=== PATIENT | female | born 1995 ===

== ENCOUNTER 2017-07-22 11:57 | Inpatient (IN) | payer OTHER ==
[2017-07-22 12:13] VITALS: BMI 21.4
--- NOTE | 2017-07-22 12:25 | ED PDOC ---
Arrival/HPI - General Time Seen by Provider: 07/22/17 12:19 Historian: Patient - History of Present Illness Narrative History of Present Illness (Text): 07/22/17 12:22 A 21 year old female, with no significant past medical history, presents to the emergency department complaining of chest pain since this morning. Patient reports having given () 2 weeks ago. Describes chest pain as heaviness and worsens with breathing. Patient notes also experiencing shortness of breath. Patient denies any fever, cough, rhinorrhea, leg cramping, bilateral calf pain, or any other complaints at this time. Also denies any recent illness or any asthma issues. Patient mentions also currently breast-feeding. No PMD Time/Duration: Other (this morning upon waking up) Symptom Onset: Sudden Symptom Course: Unchanged Past Medical History - Provider Review Nursing Documentation Reviewed: Yes - Psychiatric Hx Substance Use: No Family/Social History - Physician Review Nursing Documentation Reviewed: Yes Family/Social History: No Known Family HX Smoking Status: no Hx Alcohol Use: No Hx Substance Use: No Allergies/Home Meds Allergies/Adverse Reactions: Allergies Penicillins Allergy (Verified 07/22/17 18:33) ANAPHYLAXIS Home Medications: Home Meds Medication Instructions Recorded Confirmed No Known Home Med 07/22/17 07/22/17 Review of Systems - Physician Review All systems were reviewed & negative as marked: Yes - Review of Systems Constitutional: absent: Fevers ENT: absent: Rhinorrhea Respiratory: SOB. absent: Cough Cardiovascular: Chest Pain (described as heaviness, worsens with breathing). absent: Calf Pain (no bilateral calf pain) Musculoskeletal: absent: Other (no leg cramping) Physical Exam Vital Signs Reviewed: Yes Vital Signs Temp Pulse Resp BP Pulse Ox 07/22/17 17:11 58 L 18 112/74 100 07/22/17 16:34 65 18 126/84 100 07/22/17 16:16 62 18 110/73 100 07/22/17 15:56 58 L 18 127/75 100 07/22/17 14:00 60 17 100/76 100 07/22/17 12:11 98.2 F 18 132/93 H 100 Temperature: Afebrile Blood Pressure: Normal Pulse: Regular Respiratory Rate: Normal Appearance: Positive for: Well-Appearing Pain Distress: None Mental Status: Positive for: Alert and Oriented X 3 - Systems Exam Respiratory/Chest: Present: Clear to Auscultation, Good Air Exchange, Other (non -reproducible chest pain ). No: Respiratory Distress, Accessory Muscle Use Cardiovascular: Present: Regular Rate and Rhythm, Normal S1, S2. No: Murmurs Abdomen: No: Tenderness, Distention, Peritoneal Signs Upper Extremity: Present: Normal Inspection. No: Cyanosis, Edema Lower Extremity: Present: Normal Inspection, NORMAL PULSES (+2 good distal pulses). No: Edema, CALF TENDERNESS, Cyanosis Neurological: Present: GCS=15, CN II-XII Intact, Speech Normal Skin: Present: Warm, Dry, Normal Color. No: Rashes Psychiatric: Present: Alert, Oriented x 3, Normal Insight, Normal Concentration Medical Decision Making ED Course and Treatment: 07/22/17 12:26 Impression: 21 year old female with chest pain and shortness of breath. Physical exam shows non-reproducible chest pain, clear lungs. Differential Diagnosis included but are not limited to: Atypical chest pain, possible musculoskeletal pain vs. possible PE due to recent . Plan: -- EKG -- Chest X-ray -- Labs -- Tylenol -- Urinalysis -- Reassess and disposition Prior Visits: Notes and results from previous visits were reviewed. Patient was last seen in the emergency department on 06/24/2015 for right side flank pain. Patient was d/ c home. Progress Notes: 07/22/17 13:58 EKG: Ordered, reviewed, and independently interpreted the EKG. Rate : 60 BPM Rhythm : NSR Interpretation : No ST-segment elevations or depressions, no T-wave inversions, normal intervals. Comparison : No previous EKG for comparison. Patient currently appears relatively asymptomatic. Troponin level is 9 at this time. Will repeat Troponin and EKG testing. Possible lab result error. 07/22/2017 14:00 Chest X-ray IMPRESSION: No active pulmonary disease. Dictator: Amber Mckeon MD 07/22/2017 14:[address] Morales, will be seeing patient at bedside. 07/22/17 15:[address] has been ordered. 07/22/17 16:05 Spoke with diesel engine specialist Dr. Cifuentes for evaluation for ICU. 07/22/17 16:[address] Cifuentes, whom requests cardiac echo stat. - Lab Interpretations Lab Results: 07/22/17 12:00 07/22/17 12:00 Lab Results 07/22/17 15:00: Urine Opiates Screen Negative, Urine Methadone Screen Negative, Ur Barbiturates Screen Negative, Ur Phencyclidine Scrn Negative, Ur Amphetamines Screen Negative, U Benzodiazepines Scrn Negative, U Oth Cocaine Metabols Negative, U Cannabinoids Screen Negative 07/22/17 14:00: Troponin I 12.70 H* D 07/22/17 13:00: Urine Color Yellow, Urine Appearance Clear, Urine pH 6.0, Ur Specific [place] 1.020, Urine Protein 30 H, Urine Glucose (UA) Negative, Urine Ketones Trace H, Urine Blood Large H, Urine Nitrate Negative, Urine Bilirubin Negative, Urine Urobilinogen 1.0 H, Ur Leukocyte Esterase Moderate H, Urine RBC Tntc, Urine WBC 5 - 10, Ur Epithelial Cells 3 - 4, Urine Bacteria Few 07/22/17 12:00: Sodium 139, Potassium 4.0, Chloride 103, Carbon Dioxide 26, Anion Gap 14, BUN 15, Creatinine 0.7, Est GFR ( Amer) > 60, Est GFR (Non- Af Amer) > 60, Random Glucose 97, Calcium 9.6, Magnesium 2.1, Total Bilirubin 0.4, AST 91 H, ALT 37, Alkaline Phosphatase 98, Lactate Dehydrogenase 589, Total Creatine Kinase 413 H, CK-MB (CK-2) 18.6 H, CK-MB (CK-2) % 4.5 H, Troponin I 9.57 H*, Total Protein 7.8, Albumin 4.3, Globulin 3.5, Albumin/ Globulin Ratio 1.2 07/22/17 12:00: PT 11.5, INR 1.00, APTT 30.8, D-Dimer, Quantitative 291 H 07/22/17 12:00: WBC 5.4 D, RBC 3.68, Hgb 11.6 L, Hct 34.1 L, MCV 92.7, MCH 31.5 , MCHC 34.0, RDW 12.0, Plt Count 335, MPV 9.3, Gran % 49.1 L, Lymph % (Auto) 40.5 H, [place] % (Auto) 5.4, Eos % (Auto) 4.1, Baso % (Auto) 0.9, Gran # 2.63, Lymph # (Auto) 2.2, [place] # (Auto) 0.3, Eos # (Auto) 0.2, Baso # (Auto) 0.05 I have reviewed the lab results: Yes - RAD Interpretation Radiology Orders: 07/22/17 12:26 CHEST PORTABLE [RAD] Stat 07/22/17 14:55 ANGIO CHEST PE PROTOCOL [CT] Stat - Medication Orders Current Medication Orders: Aspirin (Ecotrin) 81 mg PO DAILY KIRK Clopidogrel Bisulfate (Plavix) 75 mg PO DAILY KIRK Heparin Sodium/Sodium Chloride (Heparin 45713 Units/250ml 1/2 Normal Saline) 25 ,000 units in 250 mls @ 5.77 mls/hr IV .Q24H KIRK; 12 UNITS/KG/HR PRN Reason: Protocol Last Admin: 07/22/17 18:23 Dose: 12 units/kg/hr, 5.77 mls/hr eMAR Start Stop Document 07/22/17 18:23 AE (Rec: 07/22/17 18:24 AE [facility]) Intravenous Solution Start Date 07/22/17 Start Time 18:24 End Date 07/23/17 End time 18:24 Total Infusion Time 1440 Titration Intervention Document 07/22/17 18:23 AE (Rec: 07/22/17 18:24 AE [facility]) Titration Intake Waste Amount 0 Container Volume 250 Titration Dosing Titration Dose 12 IV Rate 5.77 Intake/Decrease Started Metoprolol Tartrate (Lopressor) 12.5 mg PO BID KIRK Discontinued Medications Acetaminophen (Tylenol 325mg Tab) 650 mg PO STAT STA Stop: 07/22/17 12:30 Last Admin: 07/22/17 13:15 Dose: 650 mg Aspirin (Aspirin) 325 mg PO STAT STA Stop: 07/22/17 15:00 Last Admin: 07/22/17 15:16 Dose: 325 mg Clopidogrel Bisulfate (Plavix) 300 mg PO STAT STA Stop: 07/22/17 15:01 Last Admin: 07/22/17 15:16 Dose: 300 mg Heparin Sodium (Porcine) (Heparin) 3,400 units 70 units/kg (3400 units) IV ONCE ONE PRN Reason: Protocol Stop: 07/22/17 18:05 Last Admin: 07/22/17 18:22 Dose: 3,400 units eMAR Start Stop Document 07/22/17 18:22 AE (Rec: 07/22/17 18:23 AE [facility]) Intravenous Solution Start Date 07/22/17 Start Time 18:23 - Scribe Statement The provider has reviewed the documentation as recorded by the Andrade Sanderson Provider Scribe Attestation: All medical record entries made by the Scribe were at my direction and personally dictated by me. I have reviewed the chart and agree that the record accurately reflects my personal performance of the history, physical exam, medical decision making, and the department course for this patient. I have also personally directed, reviewed, and agree with the discharge instructions and disposition. Disposition/Present on Arrival - Present on Arrival Any Indicators Present on Arrival: No History of DVT/PE: No History of Uncontrolled Diabetes: No Urinary Catheter: No History Surgical Site Infection Following: None - Disposition Have Diagnosis and Disposition been Completed?: Yes Diagnosis: Chest pain Disposition: HOSPITALIZED Disposition Time: 19:36 Patient Plan: Admission, Telemetry Patient Problems: Current Active Problems Problem Status Onset Chest pain Acute Condition: FAIR
[2017-07-22 12:37] LABS: BASO # 0.05 K/mm3 (0.0-2.0); BASO % 0.9 % (0.0-3.0); EOS # 0.2 (0.0-0.7); EOS % 4.1 % (1.5-5.0); GRAN # 2.63 (1.4-6.5); GRAN % 49.1 % (50.0-68.0); HEMOGLOBIN 11.6 g/dL (12.0-16.0); LYMPH # 2.2 (1.2-3.4); LYMPH % 40.5 % (22.0-35.0); MEAN CELL VOLUME 92.7 fl (80.0-105.0); MEAN CORPUSCULAR HEMOGLOBIN 31.5 pg (25.0-35.0); MEAN PLATELET VOLUME 9.3 fl (7.0-11.0); MONO # 0.3 (0.1-0.6); MONO % 5.4 % (1.0-6.0); RBC 3.68 10^6/uL (3.5-6.1); WHITE BLOOD COUNT 5.4 10^3/ul (4.5-11.0)
[2017-07-22 12:52] LABS: ALB/GLOB RATIO 1.2 (1.1-1.8); ALBUMIN 4.3 g/dL (3.0-4.8); ALT/SGPT 37 U/L (7-56); AST/SGOT 91 U/L (14-36); BLOOD UREA NITROGEN 15 mg/dL (7-21); CALCIUM 9.6 mg/dL (8.4-10.5); GFR AFRICAN-AMERICAN > 60; GFR NON-AFRICAN AMERICAN > 60
[2017-07-22 12:56] LABS: PARTIAL THROMBOPLASTIN TIME 30.8 Seconds (25.1-36.5); PROTHROMBIN TIME 11.5 SECONDS (9.4-12.5)
[2017-07-22 13:14] LABS: URINE BILIRUBIN NEGATIVE (NEGATIVE); URINE BLOOD LARGE (NEGATIVE); URINE GLUCOSE (UA) NEGATIVE (NEGATIVE); URINE LEUKOCYTE ESTERASE MODERATE Leu/uL (NEGATIVE); URINE PROTEIN 30 mg/dL (<30 mg/dL)
[2017-07-22 13:17] LABS: URINE APPEARANCE CLEAR (CLEAR); URINE COLOR YELLOW (YELLOW)
[2017-07-22 13:48] LABS: CK MB% 4.5 % (2.5-3.0); CK-MB 18.6 ng/mL (0.0-3.6); TROPONIN I 9.57 ng/mL
[2017-07-22 13:54] LABS: URINE RBC TNTC /hpf (0-2)
[2017-07-22 13:55] LABS: URINE BACTERIA FEW (NEG)
--- NOTE | 2017-07-22 14:02 | RAD ---
HISTORY: chest pain COMPARISON: No prior. FINDINGS: LUNGS: The lungs are well inflated and clear. PLEURA: No significant pleural effusion identified, no pneumothorax apparent. CARDIOVASCULAR: Normal. OSSEOUS STRUCTURES: No significant abnormalities. VISUALIZED UPPER ABDOMEN: Normal. OTHER FINDINGS: None. IMPRESSION: No active pulmonary disease.
--- NOTE | 2017-07-22 14:27 | CARD ---
APPROVED REPORT EKG Measurement Heart [id number] <Conclusion> Normal sinus rhythm Normal ECG
[2017-07-22] MEDS ORDERED: Iodixanol 320 MG/ML 100 ML BOTTLE IV ONE (15:08)
--- NOTE | 2017-07-22 16:02 | CT ---
PROCEDURE: CT Chest with contrast (Pulmonary Angiogram) HISTORY: Chest pain COMPARISON: Plain radiograph from 07/22/2017. TECHNIQUE: Axial computed tomography images were obtained of the chest in the pulmonary arterial phase of enhancement. Coronal and sagittal reformatted images were created and reviewed. Intravenous contrast dose: 100 mL Visipaque 320 Radiation dose: Total exam DLP = 174.77 mGy-cm. This CT exam was performed using one or more of the following dose reduction techniques: Automated exposure control, adjustment of the mA and/or kV according to patient size, and/or use of iterative reconstruction technique. FINDINGS: PULMONARY ARTERIES: There are no filling defects in the pulmonary arteries to suggest acute pulmonary embolus. AORTA: No acute findings. No thoracic aortic aneurysm. LUNGS: The lungs are well inflated and clear. No nodule, mass or pulmonary consolidation. PLEURAL SPACES: No effusion or pneuomothorax. HEART: The heart is normal in size. No significant pericardial effusion. LYMPH NODES: No pathologic hilar or mediastinal lymphadenopathy. BONES, CHEST WALL: Within normal limits for the patient's age. No fracture or destructive lesion OTHER FINDINGS: Unremarkable. IMPRESSION: No CTA evidence for acute pulmonary embolism. Clear lungs.
[2017-07-22 16:19] LABS: BARBITURATES, UR NEGATIVE (NEGATIVE); BENZODIAZEPINES, UR NEGATIVE (NEGATIVE); OPIATES, UR NEGATIVE (NEGATIVE); PHENCYCLIDINE, UR NEGATIVE (NEGATIVE)
--- NOTE | 2017-07-22 17:10 | CP.PCM.CON ---
History of Present Illness - History of Present Illness History of Present Illness: MICU Consult Note HPI Patient is 21yo female without sig PMHx, s/p 2 weeks ago, presents with chest pain. Pt reports chest pain began at 8am, left sided, pressure like, moderate intensity, non radiating without alleviating or aggravating factors, last until 12pm, at which time it subsided. Pt reports the chest pain was associated with SOB. Denies fever, chills, cough, recent illness, leg edema, diaphoresis, GARCIA, dizziness. No other constitutional symptoms. Pt denies smoking , etoh, illicit drug use. In the ER patient noted to have elevated troponin, cardiology consulted. Pt reports an eventful . PMHx NONE PSHx NONE Meds as per EMR Allergies PCN FHx NC ROS as above Review of Systems - Review of Systems Review of Systems: as per HPI Past Patient History - Past Social History Smoking Status: no - PSYCHIATRIC Hx Substance Use: No - SURGICAL HISTORY Hx Surgeries: No Meds Allergies/Adverse Reactions: Allergies Allergy/AdvReac Type Severity Reaction Status Date / Time Penicillins Allergy ANAPHYLAXIS Verified 07/22/17 12:49 Physical Exam - Constitutional Appears: Non-toxic, No Acute Distress - Head Exam Head Exam: NORMAL INSPECTION - Eye Exam Eye Exam: Normal appearance - ENT Exam ENT Exam: Mucous Membranes Moist - Respiratory Exam Respiratory Exam: Clear to Auscultation Bilateral, NORMAL BREATHING PATTERN - Cardiovascular Exam Cardiovascular Exam: REGULAR RHYTHM, +S1, +S2 - GI/Abdominal Exam GI & Abdominal Exam: Normal Bowel Sounds, Soft - Extremities Exam Extremities exam: Positive for: normal inspection - Back Exam Back exam: NORMAL INSPECTION - Neurological Exam Neurological exam: Alert, Oriented x3 - Psychiatric Exam Psychiatric exam: Normal Affect - Skin Skin Exam: Normal Color, Warm Results - Vital Signs Recent Vital Signs: Last Vital Signs Temp 98.2 F 07/22/17 12:11 Pulse 65 07/22/17 16:34 Resp 18 07/22/17 16:34 BP 126/84 07/22/17 16:34 Pulse Ox 100 07/22/17 16:34 - Labs Result Diagrams: 07/22/17 12:00 07/22/17 12:00 Labs: Laboratory Results - last 24 hr 07/22/17 07/22/17 07/22/17 12:00 12:00 12:00 WBC 5.4 D RBC 3.68 Hgb 11.6 L Hct 34.1 L MCV 92.7 MCH 31.5 MCHC 34.0 RDW 12.0 Plt Count 335 MPV 9.3 Gran % 49.1 L Lymph % (Auto) 40.5 H [place] % (Auto) 5.4 Eos % (Auto) 4.1 Baso % (Auto) 0.9 Gran # 2.63 Lymph # (Auto) 2.2 [place] # (Auto) 0.3 Eos # (Auto) 0.2 Baso # (Auto) 0.05 PT 11.5 INR 1.00 APTT 30.8 D-Dimer, Quantitative 291 H Sodium 139 Potassium 4.0 Chloride 103 Carbon Dioxide 26 Anion Gap 14 BUN 15 Creatinine 0.7 Est GFR ( Amer) > 60 Est GFR (Non-Af Amer) > 60 Random Glucose 97 Calcium 9.6 Magnesium 2.1 Total Bilirubin 0.4 AST 91 H ALT 37 Alkaline Phosphatase 98 Lactate Dehydrogenase 589 Total Creatine Kinase 413 H CK-MB (CK-2) 18.6 H CK-MB (CK-2) % 4.5 H Troponin I 9.57 H* Total Protein 7.8 Albumin 4.3 Globulin 3.5 Albumin/Globulin Ratio 1.2 Urine Color Urine Appearance Urine pH Ur Specific [place] Urine Protein Urine Glucose (UA) Urine Ketones Urine Blood Urine Nitrate Urine Bilirubin Urine Urobilinogen Ur Leukocyte Esterase Urine RBC Urine WBC Ur Epithelial Cells Urine Bacteria Urine Opiates Screen Urine Methadone Screen Ur Barbiturates Screen Ur Phencyclidine Scrn Ur Amphetamines Screen U Benzodiazepines Scrn U Oth Cocaine Metabols U Cannabinoids Screen 07/22/17 07/22/17 07/22/17 13:00 14:00 15:00 WBC RBC Hgb Hct MCV MCH MCHC RDW Plt Count MPV Gran % Lymph % (Auto) [place] % (Auto) Eos % (Auto) Baso % (Auto) Gran # Lymph # (Auto) [place] # (Auto) Eos # (Auto) Baso # (Auto) PT INR APTT D-Dimer, Quantitative Sodium Potassium Chloride Carbon Dioxide Anion Gap BUN Creatinine Est GFR ( Amer) Est GFR (Non-Af Amer) Random Glucose Calcium Magnesium Total Bilirubin AST ALT Alkaline Phosphatase Lactate Dehydrogenase Total Creatine Kinase CK-MB (CK-2) CK-MB (CK-2) % Troponin I 12.70 H* D Total Protein Albumin Globulin Albumin/Globulin Ratio Urine Color Yellow Urine Appearance Clear Urine pH 6.0 Ur Specific [place] 1.020 Urine Protein 30 H Urine Glucose (UA) Negative Urine Ketones Trace H Urine Blood Large H Urine Nitrate Negative Urine Bilirubin Negative Urine Urobilinogen 1.0 H Ur Leukocyte Esterase Moderate H Urine RBC Tntc Urine WBC 5 - 10 Ur Epithelial Cells 3 - 4 Urine Bacteria Few Urine Opiates Screen Negative Urine Methadone Screen Negative Ur Barbiturates Screen Negative Ur Phencyclidine Scrn Negative Ur Amphetamines Screen Negative U Benzodiazepines Scrn Negative U Oth Cocaine Metabols Negative U Cannabinoids Screen Negative - EKG Data EKG comments: NSR, NML axis, NO ST changes - Imaging and Cardiology CT scan - chest Status: Image reviewed by me, Report reviewed by me Assessment & Plan - Assessment and Plan (Free Text) Assessment: 21yo female a/w chest pain and elevated troponin. Elevated Troponin r/o NSTEMI Chest Pain SOB - currently afebrile, HD stable, comfortable in NAD, sat 100%, chest pain free - CXR normal, CT PE negative, no pleural effusions - EKG NSR, no ST changes - Bedside ECHO subcostol view with NO pericardial effusion, minimally depressed EF, officel ECHO pending - Cardiology consulted - ASA, Plavix, Lipitor - Heparin - HgBA1C, Lipid Panel - ECHO - Caridology consult - repeat Cardiac enzymes - monitor HH - DVT ppx, Heparin drip - Admit to CCU
[2017-07-22] MEDS ORDERED: Heparin25000 units/250ml 1/2NS 25,000 UNITS/250 ML BAG IV SCH (17:15)
[2017-07-22] MEDS ORDERED: Pneumococcal 23-Valent Vaccine IM ONE (19:45)
[2017-07-22 20:59] LABS: CK MB% 4.1 % (2.5-3.0); CK-MB 18.3 ng/mL (0.0-3.6)
[2017-07-22 21:14] LABS: TROPONIN I 13.4 ng/mL
[2017-07-22] MEDS ORDERED: Morphine 4 mg/ml ISec IVP STA (22:09)
[2017-07-22] MEDS ORDERED: Morphine 4 mg/ml ISec IVP PRN (22:46)
--- NOTE | 2017-07-22 23:06 | HP ---
HISTORY OF PRESENT ILLNESS: I was called on to the ER to admit Maria Guadalupe Norris. She is a 21-year-old female, who is 2 weeks. She had a chest heaviness, worsened with breathing, chest tightness, left arm pain. It happened 4 hours before she came to the emergency room, first time ever with this. Otherwise, she has no past medical history. It is a sudden onset. No surgical history. FAMILY HISTORY: No known family history. SOCIAL HISTORY: No smoker. No drinking. No drugs. ALLERGIES: SHE HAS ALLERGIES TO PENICILLIN. MEDICATIONS: She takes no medications. REVIEW OF SYSTEMS: On review of systems, no vision or hearing changes. No sore throat. There is little shortness of breath. No cough. There is chest pain, which is described as heaviness, worsens with breathing. No calf pain. No abdominal pain, nausea, vomiting, constipation, diarrhea. Legs are okay. No skin issues. No anxiety or depression. PHYSICAL EXAMINATION: VITAL SIGNS: She has a 98.2 temperature, 60 pulse, 70 respiratory rate, 100/76 blood pressure, 100% O2 sats. GENERAL: She is comfortable in the gurney in the ER right now. She is well appearing, in no acute distress. Alert and oriented x3. HEENT: Head is atraumatic, normocephalic. Extraocular muscles are intact. Throat is moist. NECK: Supple. Thyroid is midline. No palpable appreciable lymphadenopathy. HEART: Regular rate. Normal S1, S2. LUNGS: Clear to auscultation bilaterally. No wheezes, rhonchi or rales. ABDOMEN: Soft, nontender. Positive bowel sounds. No guarding, no rebound, no CVA tenderness. EXTREMITIES: Have no edema. No calf tenderness. NEUROLOGIC: GCS is 15. Cranial nerves II-XII grossly intact. Normal speech. Alert and oriented x3. SKIN: Warm and dry. No rashes or ulcers appreciated. With a history of having chest pain in a 21-year-old with 2 years , with also shortness of breath. She had an EKG which is normal sinus rhythm, no ST elevations or depressions. Chest x-ray, which showed no active disease. She had a CT angio, which was normal. 5.4 white count, 11.6 hemoglobin, 34.1 hematocrit with 335 platelets. She has a INR of 1, D-dimer of 291, that is why they did a CAT scan angio, which was normal. Sodium 139, potassium is 4, BUN creatinine 0.7,GFR is greater than 60, sugar is 97, calcium is 9.6, phosphorous 4, magnesium 2.2, total bili is 0.4. AST is 91, a little high, ALT is 37, alk phos 98, lactate dehydrogenase is 589. Troponin I was high at 9.57 and was high at 12.7 and was high at 13.4. TSH is 0.99. Normal urine showed moderate leukocytes, few bacteria. Toxicology was completely normal. I called in Dr. Delfin Morales, the mid level java developer. She is presently in the Intensive Care Unit. She is on heparin drip, aspirin, Plavix, and Lopressor. We will check her labs tomorrow, be very aggressive in her care. We will continue aggressive treatment and care on Maria Guadalupe Norris with chest pain, with elevated troponins. Mega Jaimes DO KEN
[2017-07-23 06:54] LABS: BASO # 0.05 K/mm3 (0.0-2.0); BASO % 0.7 % (0.0-3.0); EOS # 0.2 (0.0-0.7); EOS % 3.6 % (1.5-5.0); GRAN # 2.51 (1.4-6.5); GRAN % 37.4 % (50.0-68.0); LYMPH # 3.5 (1.2-3.4); LYMPH % 52.2 % (22.0-35.0); MEAN CELL VOLUME 92.6 fl (80.0-105.0); MEAN CORPUSCULAR HEMOGLOBIN 31.2 pg (25.0-35.0); MEAN CORPUSCULAR HGB CONC 33.6 g/dl (31.0-37.0); MEAN PLATELET VOLUME 9.4 fl (7.0-11.0); MONO # 0.4 (0.1-0.6); MONO % 6.1 % (1.0-6.0); RBC 3.53 10^6/uL (3.5-6.1); RED CELL DISTRIBUTION WIDTH 12.1 % (11.5-14.5); WHITE BLOOD COUNT 6.7 10^3/ul (4.5-11.0)
[2017-07-23 07:22] LABS: ALB/GLOB RATIO 1.3 (1.1-1.8); ALBUMIN 4.1 g/dL (3.0-4.8); ALT/SGPT 50 U/L (7-56); AST/SGOT 152 U/L (14-36); BLOOD UREA NITROGEN 13 mg/dL (7-21); CALCIUM 9.5 mg/dL (8.4-10.5); GFR AFRICAN-AMERICAN > 60; GFR NON-AFRICAN AMERICAN > 60; HDL CHOLESTEROL 46 mg/dL (29-60)
--- NOTE | 2017-07-23 07:25 | CARD ---
APPROVED REPORT EKG Measurement Heart [id number] <Conclusion> Sinus bradycardia Otherwise normal ECG
[2017-07-23 07:30] LABS: LDL CHOLESTEROL 142 mg/dL (0-129)
[2017-07-23] MEDS ORDERED: Nitroglycerin 50mg in D5W 50 MG/250 ML BOTTLE IV PRN (08:16)
--- NOTE | 2017-07-23 08:25 | PN ---
DATE: SUBJECTIVE: I saw her resting comfortably in the Intensive Care Unit. She slept fairly well. She had a little bit of chest pain lat night. She was given nitroglycerins and morphine. MEDICATIONS: She is on aspirin, heparin drip, Lopressor, morphine as needed, Plavix, Tylenol. She has some nitroglycerin. PHYSICAL EXAMINATION: GENERAL: She is alert and oriented x3. She is comfortable right now. She is telling me about her whole family. Brothers have some kind of cardiac issues in the 20s. VITAL SIGNS: She has a 98.2 temp, she has a 62 pulse, 122/55 blood pressure, 13 respiratory rate, 98% O2 sat on room air. HEENT: Her head is atraumatic, normocephalic. Throat is moist. NECK: Supple. HEART: Regular rate. LUNGS: Decreased breath sounds, but clear to auscultation. ABDOMEN: Soft. EXTREMITIES: No edema. LABORATORY DATA: She has a negative urine drug screen. She has a urine with moderate leukocytes, but few bacteria. 140 sodium, potassium 4.4, BUN of 13, creatinine 0.7, GFR is greater than 60, sugar is 93, calcium is 9.5, total bili is 0.4, AST is 152, ALT is 50, alk phos 97. Troponins are high 9.57, 12.7 and 13.4. She has a 6.7 white count, 11 hemoglobin, 32.7 hematocrit with a 343 platelets. ASSESSMENT AND PLAN: We are doing a workup for her for this elevated troponins, await and see what Dr. Morales, the trailer mechanic wants to do. We will keep her as comfortable as possible. Maria Guadalupe Norris with elevated troponin and chest pain and she is 2 weeks' . Mega Jaimes DO
--- NOTE | 2017-07-23 08:31 | CP.CCUPN ---
<Garfield Arias - Last Filed: 07/23/17 11:20> CCU Subjective - Physician Review Events Since Last Encounter (Free Text): 07/23/17 08:37 No acute events, increased chest pain. Subjective (Free Text): 07/23/17 08:38 Patient seen and examined at bedside in no acute distress patient states her chest pain however increased last night from initial presentation. Initially patient's chest pain was a 6/10 overnight was a 8/10 relieved with nitro paste. Patient currently experiencing chest pain, shortness of breath, nausea, dizziness. Denies fevers, chills, abdominal pain, body aches, cough. Critical Care Time Spent (in minutes): 40 CCU Objective - Vital Signs / Intake & Output Vital Signs (Last 4 hours): Vital Signs Pulse Resp BP Pulse Ox 07/23/17 07:22 62 07/23/17 07:18 62 13 123/55 L 98 07/23/17 07:10 63 16 99 07/23/17 07:00 56 L 16 98 07/23/17 06:50 71 46 H 98 07/23/17 06:40 62 14 98 07/23/17 06:30 66 18 99 07/23/17 06:20 73 29 H 98 07/23/17 06:10 91 H 95 07/23/17 06:00 109/76 07/23/17 05:59 60 14 97 07/23/17 05:50 61 14 97 07/23/17 05:40 69 56 H 99 07/23/17 05:30 85 16 99 07/23/17 05:20 64 13 97 07/23/17 05:10 65 13 97 07/23/17 05:00 97 H 29 H 103/60 97 07/23/17 04:50 72 15 98 07/23/17 04:40 64 14 98 07/23/17 04:30 66 14 97 Intake and Output (Last 8hrs): Intake & Output 07/22/17 07/23/17 07/23/17 22:59 06:59 14:59 Intake Total 133 Output Total 650 Balance -517 Weight 48.081 kg Intake: IV 133 Right Antecubital 63 Output: Urine 650 Urine, Voided 650 Other: Voiding Method Toilet # Voids Urine, Voided 2 - Physical Exam Head: Positive for: Atraumatic, Normocephalic Extroacular Muscles: Positive for: EOMI Mouth: Positive for: Moist Mucous Membranes Respiratory/Chest: Positive for: Clear to Auscultation, Good Air Exchange, Other (non-reproducible chest pain ). Negative for: Respiratory Distress, Accessory Muscle Use Cardiovascular: Positive for: Regular Rate and Rhythm, Normal S1, S2. Negative for: Murmurs Abdomen: Negative for: Tenderness, Distention, Peritoneal Signs Upper Extremity: Positive for: Normal Inspection. Negative for: Cyanosis, Edema Lower Extremity: Positive for: Normal Inspection, NORMAL PULSES (+2 good distal pulses). Negative for: Edema, CALF TENDERNESS, Cyanosis Neurological: Positive for: GCS=15, Speech Normal Skin: Positive for: Warm, Dry, Normal Color. Negative for: Rashes Psychiatric: Positive for: Alert, Oriented x 3, Normal Insight, Normal Concentration - Medications Active Medications: Active Medications Generic Name Dose Route Start Last Admin Trade Name Freq PRN Reason Stop Dose Admin Aspirin 81 mg 07/23/17 10:00 Ecotrin PO DAILY [facility] Atorvastatin Calcium 10 mg 07/23/17 17:00 Lipitor PO DIN [facility] Clopidogrel Bisulfate 75 mg 07/23/17 10:00 Plavix PO DAILY [facility] Heparin Sodium/Sodium Chloride 25,000 units in 250 mls @ 5.77 mls/hr 07/22/17 17:15 07/23/17 02:46 Heparin 51366 Units/250ml 1/2 Normal Saline IV 9 units/kg/hr .Q24H KIRK 4.327 mls/hr Protocol Titration 12 UNITS/KG/HR Nitroglycerin/Dextrose 50 mg in 250 mls @ 1.5 mls/hr 07/23/17 08:16 Nitroglycerin 50 Mg/250 Ml D5w IV .Q24H PRN Pain, moderate (4-7) Protocol 5 MCG/MIN Metoprolol Tartrate 12.5 mg 07/23/17 10:00 Lopressor PO BID [facility] Morphine Sulfate 2 mg 07/22/17 22:46 Morphine IVP Q4H PRN Pain, severe (8-10) - Patient Studies Lab Studies: Lab Studies 07/23/17 07/23/17 07/23/17 Range/Units 05:00 05:00 01:05 WBC 6.7 D (4.5-11.0) 10^3/ul RBC 3.53 (3.5-6.1) 10^6/uL Hgb 11.0 L (12.0-16.0) g/dL Hct 32.7 L (36.0-48.0) % MCV 92.6 (80.0-105.0) fl MCH 31.2 (25.0-35.0) pg MCHC 33.6 (31.0-37.0) g/dl RDW 12.1 (11.5-14.5) % Plt Count 343 (120.0-450.0) 10^3/uL MPV 9.4 (7.0-11.0) fl Gran % 37.4 L (50.0-68.0) % Lymph % (Auto) 52.2 H (22.0-35.0) % [place] % (Auto) 6.1 H (1.0-6.0) % Eos % (Auto) 3.6 (1.5-5.0) % Baso % (Auto) 0.7 (0.0-3.0) % Gran # 2.51 (1.4-6.5) Lymph # (Auto) 3.5 H (1.2-3.4) [place] # (Auto) 0.4 (0.1-0.6) Eos # (Auto) 0.2 (0.0-0.7) Baso # (Auto) 0.05 (0.0-2.0) K/mm3 APTT 132.7 H* (25.1-36.5) Seconds Sodium 140 (132-148) mmol/L Potassium 4.4 (3.6-5.0) mmol/L Chloride 104 (98-107) mmol/L Carbon Dioxide 26 (21-33) mmol/L Anion Gap 14 (10-20) BUN 13 (7-21) mg/dL Creatinine 0.7 (0.7-1.2) mg/dl Est GFR ( Amer) > 60 Est GFR (Non-Af Amer) > 60 Random Glucose 93 (70-110) mg/dL Calcium 9.5 (8.4-10.5) mg/dL Phosphorus (2.5-4.5) mg/dL Magnesium (1.7-2.2) mg/dL Total Bilirubin 0.4 (0.2-1.3) mg/dL AST 152 H D (14-36) U/L ALT 50 (7-56) U/L Alkaline Phosphatase 97 (38-126) U/L Lactate Dehydrogenase (333-699) U/L Total Creatine Kinase (35-230) U/L CK-MB (CK-2) (0.0-3.6) ng/mL CK-MB (CK-2) % (2.5-3.0) % Troponin I ng/mL Total Protein 7.4 (5.8-8.3) g/dL Albumin 4.1 (3.0-4.8) g/dL Globulin 3.3 gm/dL Albumin/Globulin Ratio 1.3 (1.1-1.8) Triglycerides 164 H (35-160) mg/dL Cholesterol 233 H (130-200) mg/dL LDL Cholesterol Direct 142 H (0-129) mg/dL HDL Cholesterol 46 (29-60) mg/dL TSH 3rd Generation (0.46-4.68) mIU/mL 07/22/17 07/22/17 07/22/17 Range/Units 20:20 17:21 17:21 WBC (4.5-11.0) 10^3/ul RBC (3.5-6.1) 10^6/uL Hgb (12.0-16.0) g/dL Hct (36.0-48.0) % MCV (80.0-105.0) fl MCH (25.0-35.0) pg MCHC (31.0-37.0) g/dl RDW (11.5-14.5) % Plt Count (120.0-450.0) 10^3/uL MPV (7.0-11.0) fl Gran % (50.0-68.0) % Lymph % (Auto) (22.0-35.0) % [place] % (Auto) (1.0-6.0) % Eos % (Auto) (1.5-5.0) % Baso % (Auto) (0.0-3.0) % Gran # (1.4-6.5) Lymph # (Auto) (1.2-3.4) [place] # (Auto) (0.1-0.6) Eos # (Auto) (0.0-0.7) Baso # (Auto) (0.0-2.0) K/mm3 APTT (25.1-36.5) Seconds Sodium (132-148) mmol/L Potassium (3.6-5.0) mmol/L Chloride (98-107) mmol/L Carbon Dioxide (21-33) mmol/L Anion Gap (10-20) BUN (7-21) mg/dL Creatinine (0.7-1.2) mg/dl Est GFR ( Amer) Est GFR (Non-Af Amer) Random Glucose (70-110) mg/dL Calcium (8.4-10.5) mg/dL Phosphorus 4.0 (2.5-4.5) mg/dL Magnesium 2.2 (1.7-2.2) mg/dL Total Bilirubin (0.2-1.3) mg/dL AST (14-36) U/L ALT (7-56) U/L Alkaline Phosphatase (38-126) U/L Lactate Dehydrogenase 618 (333-699) U/L Total Creatine Kinase 449 H (35-230) U/L CK-MB (CK-2) 18.3 H (0.0-3.6) ng/mL CK-MB (CK-2) % 4.1 H (2.5-3.0) % Troponin I 13.40 H* ng/mL Total Protein (5.8-8.3) g/dL Albumin (3.0-4.8) g/dL Globulin gm/dL Albumin/Globulin Ratio (1.1-1.8) Triglycerides (35-160) mg/dL Cholesterol (130-200) mg/dL LDL Cholesterol Direct (0-129) mg/dL HDL Cholesterol (29-60) mg/dL TSH 3rd Generation 0.99 (0.46-4.68) mIU/mL Laboratory Results - last 24 hr 07/22/17 07/22/17 07/22/17 17:21 17:21 20:20 WBC RBC Hgb Hct MCV MCH MCHC RDW Plt Count MPV Gran % Lymph % (Auto) [place] % (Auto) Eos % (Auto) Baso % (Auto) Gran # Lymph # (Auto) [place] # (Auto) Eos # (Auto) Baso # (Auto) APTT Sodium Potassium Chloride Carbon Dioxide Anion Gap BUN Creatinine Est GFR ( Amer) Est GFR (Non-Af Amer) Random Glucose Calcium Phosphorus 4.0 Magnesium 2.2 Total Bilirubin AST ALT Alkaline Phosphatase Lactate Dehydrogenase 618 Total Creatine Kinase 449 H CK-MB (CK-2) 18.3 H CK-MB (CK-2) % 4.1 H Troponin I 13.40 H* Total Protein Albumin Globulin Albumin/Globulin Ratio Triglycerides Cholesterol LDL Cholesterol Direct HDL Cholesterol TSH 3rd Generation 0.99 07/23/17 07/23/17 07/23/17 01:05 05:00 05:00 WBC 6.7 D RBC 3.53 Hgb 11.0 L Hct 32.7 L MCV 92.6 MCH 31.2 MCHC 33.6 RDW 12.1 Plt Count 343 MPV 9.4 Gran % 37.4 L Lymph % (Auto) 52.2 H [place] % (Auto) 6.1 H Eos % (Auto) 3.6 Baso % (Auto) 0.7 Gran # 2.51 Lymph # (Auto) 3.5 H [place] # (Auto) 0.4 Eos # (Auto) 0.2 Baso # (Auto) 0.05 APTT 132.7 H* Sodium 140 Potassium 4.4 Chloride 104 Carbon Dioxide 26 Anion Gap 14 BUN 13 Creatinine 0.7 Est GFR ( Amer) > 60 Est GFR (Non-Af Amer) > 60 Random Glucose 93 Calcium 9.5 Phosphorus Magnesium Total Bilirubin 0.4 AST 152 H D ALT 50 Alkaline Phosphatase 97 Lactate Dehydrogenase Total Creatine Kinase CK-MB (CK-2) CK-MB (CK-2) % Troponin I Total Protein 7.4 Albumin 4.1 Globulin 3.3 Albumin/Globulin Ratio 1.3 Triglycerides 164 H Cholesterol 233 H LDL Cholesterol Direct 142 H HDL Cholesterol 46 TSH 3rd Generation Review of Systems - Constitutional Constitutional: absent: Fever, Chills, Sweats - EENT Eyes: UNREMARKABLE. absent: Blurred Vision, Change in Vision Ears: UNREMARKABLE - Cardiovascular Cardiovascular: Chest Pain, Dyspnea - Respiratory Respiratory: UNREMARKABLE - Gastrointestinal Gastrointestinal: Constipation (4 days since last bowel movement), Nausea. absent: Vomiting - Genitourinary Genitourinary: UNREMARKABLE. absent: Dysuria, Urinary Frequency - Musculoskeletal Musculoskeletal: UNREMARKABLE - Integumentary Integumentary: UNREMARKABLE - Neurological Neurological: absent: Dizziness, Numbness - Psychiatric Psychiatric: UNREMARKABLE Critical Care Progress Note - Nutrition Nutrition: Nutrition Category Date Time Status Heart Healthy Diet [DIET] Diets 07/22/17 Dinner Ordered Assessment/Plan - Assessment and Plan (Free Text) Assessment: 21 F with no significant past medical history aside from being post 2 weeks however with significant family history for cardiac disease of congenital and vasculitic etiology presenting with chest pain described as a brick sitting on her chest a 6/10 non radiating associated with shortness of breath. Upon being admitted to the ED patient states chest pain had resolved however labs revealed elevated cardiac enzymes which trended upwards. Patient was started on heparin drip. Bedside echo was performed which revealed no signs of pericardial effusion, with minimally depressed EF. Patient will undergo catheterization this afternoon. Neurologic -Patient is alert awake and oriented x 3 -Patient is fully aware of her current status and the tests that will performed and reasoning behind the rhea Cardiovascular -Patient currently experienced chest pain 8/10 associated with shortness of breath overnight, pain was relieved with nitropaste. -Patient began experiencing pain again, nitro drip started, patient became nauseous. Drip was stopped zofran given, will restart drip. -Troponin initially 9.57, last troponin was 13.40 -Patient is to have echocardiogram performed; awaiting official results -Patient will undergo catheterization this afternoon; results pending -Patient's lipid panel reveals an ASCVD score of 1.2%; aspirin and statin not indicated -Aspirin and Plavix will be held due to patient still experiencing vaginal bleeding Pulmonary -Experiencing shortness of breath associated with chest pain -Patient currently on NC 2L, O2 98% Gastrointestinal -Patient admits to nausea; will continue with zofran -Nausea associated with heparin drip -Will continue to monitor liver enzymes as AST is trending upwards; consider CT abdomen due to constipation and enzymes elevation Immunologic/Infectious -Will consider ordering ESR, CRP, and autoimmune workup pending cath results -Urinalysis reveals positive Leukocyte esterase, WBC 5-10, epithelial count 3-4 ; will order repeat UA; patient denies painful urination Hematologic -Continue to monitor WBC as it is uptrending -Continue to monitor platelets as it is also trending upwards -Heparin drip started Genitourinary -Will consider ordering ESR, CRP, and autoimmune workup pending cath results -Urinalysis reveals positive Leukocyte esterase, WBC 5-10, epithelial count 3-4 ; will order repeat UA; patient denies painful urination <Kurt Johns - Last Filed: 07/23/17 14:03> CCU Objective - Vital Signs / Intake & Output Vital Signs (Last 4 hours): Vital Signs Temp Pulse Resp BP Pulse Ox 07/23/17 13:52 98.2 F 61 18 114/70 07/23/17 13:38 98.2 F 65 18 116/69 07/23/17 13:36 65 116/69 07/23/17 12:00 99.4 F 80 20 98 07/23/17 11:50 80 13 88 L 07/23/17 11:40 78 15 97 07/23/17 11:30 72 25 H 99 07/23/17 11:27 75 14 114/45 L 87 L 07/23/17 11:20 88 19 95 07/23/17 11:10 87 18 99 07/23/17 11:00 74 21 99 07/23/17 10:50 73 16 99 07/23/17 10:40 81 19 97 07/23/17 10:30 79 20 98 07/23/17 10:20 93 H 16 97 07/23/17 10:10 83 116 H 99 Intake and Output (Last 8hrs): Intake & Output 07/22/17 07/23/17 07/23/17 22:59 06:59 14:59 Intake Total 133 85 Output Total 650 Balance -517 85 Weight 106 lb Intake: IV 133 85 Right Antecubital 63 Output: Urine 650 Urine, Voided 650 Other: Voiding Method Toilet # Voids Urine, Voided 2 - Medications Active Medications: Active Medications Generic Name Dose Route Start Last Admin Trade Name Freq PRN Reason Stop Dose Admin Sodium Chloride 1,000 mls @ 100 mls/hr 07/23/17 13:15 07/23/17 13:35 Sodium Chloride 0.9% IV 07/23/17 20:00 100 mls/hr .Q10H KIRK Administration Ondansetron HCl 4 mg 07/23/17 08:32 07/23/17 09:01 Zofran Inj IVP 4 mg Q6H PRN Administration Nausea/Vomiting - Patient Studies Lab Studies: Lab Studies 07/23/17 07/23/17 07/23/17 Range/Units 08:45 05:00 05:00 WBC 6.7 D (4.5-11.0) 10^3/ul RBC 3.53 (3.5-6.1) 10^6/uL Hgb 11.0 L (12.0-16.0) g/dL Hct 32.7 L (36.0-48.0) % MCV 92.6 (80.0-105.0) fl MCH 31.2 (25.0-35.0) pg MCHC 33.6 (31.0-37.0) g/dl RDW 12.1 (11.5-14.5) % Plt Count 343 (120.0-450.0) 10^3/uL MPV 9.4 (7.0-11.0) fl Gran % 37.4 L (50.0-68.0) % Lymph % (Auto) 52.2 H (22.0-35.0) % [place] % (Auto) 6.1 H (1.0-6.0) % Eos % (Auto) 3.6 (1.5-5.0) % Baso % (Auto) 0.7 (0.0-3.0) % Gran # 2.51 (1.4-6.5) Lymph # (Auto) 3.5 H (1.2-3.4) [place] # (Auto) 0.4 (0.1-0.6) Eos # (Auto) 0.2 (0.0-0.7) Baso # (Auto) 0.05 (0.0-2.0) K/mm3 APTT 53.5 H (25.1-36.5) Seconds Sodium 140 (132-148) mmol/L Potassium 4.4 (3.6-5.0) mmol/L Chloride 104 (98-107) mmol/L Carbon Dioxide 26 (21-33) mmol/L Anion Gap 14 (10-20) BUN 13 (7-21) mg/dL Creatinine 0.7 (0.7-1.2) mg/dl Est GFR ( Amer) > 60 Est GFR (Non-Af Amer) > 60 Random Glucose 93 (70-110) mg/dL Calcium 9.5 (8.4-10.5) mg/dL Phosphorus (2.5-4.5) mg/dL Magnesium (1.7-2.2) mg/dL Total Bilirubin 0.4 (0.2-1.3) mg/dL AST 152 H D (14-36) U/L ALT 50 (7-56) U/L Alkaline Phosphatase 97 (38-126) U/L Lactate Dehydrogenase (333-699) U/L Total Creatine Kinase (35-230) U/L CK-MB (CK-2) (0.0-3.6) ng/mL CK-MB (CK-2) % (2.5-3.0) % Troponin I ng/mL Total Protein 7.4 (5.8-8.3) g/dL Albumin 4.1 (3.0-4.8) g/dL Globulin 3.3 gm/dL Albumin/Globulin Ratio 1.3 (1.1-1.8) Triglycerides 164 H (35-160) mg/dL Cholesterol 233 H (130-200) mg/dL LDL Cholesterol Direct 142 H (0-129) mg/dL HDL Cholesterol 46 (29-60) mg/dL TSH 3rd Generation (0.46-4.68) mIU/mL 07/23/17 07/22/17 07/22/17 Range/Units 01:05 20:20 17:21 WBC (4.5-11.0) 10^3/ul RBC (3.5-6.1) 10^6/uL Hgb (12.0-16.0) g/dL Hct (36.0-48.0) % MCV (80.0-105.0) fl MCH (25.0-35.0) pg MCHC (31.0-37.0) g/dl RDW (11.5-14.5) % Plt Count (120.0-450.0) 10^3/uL MPV (7.0-11.0) fl Gran % (50.0-68.0) % Lymph % (Auto) (22.0-35.0) % [place] % (Auto) (1.0-6.0) % Eos % (Auto) (1.5-5.0) % Baso % (Auto) (0.0-3.0) % Gran # (1.4-6.5) Lymph # (Auto) (1.2-3.4) [place] # (Auto) (0.1-0.6) Eos # (Auto) (0.0-0.7) Baso # (Auto) (0.0-2.0) K/mm3 APTT 132.7 H* (25.1-36.5) Seconds Sodium (132-148) mmol/L Potassium (3.6-5.0) mmol/L Chloride (98-107) mmol/L Carbon Dioxide (21-33) mmol/L Anion Gap (10-20) BUN (7-21) mg/dL Creatinine (0.7-1.2) mg/dl Est GFR ( Amer) Est GFR (Non-Af Amer) Random Glucose (70-110) mg/dL Calcium (8.4-10.5) mg/dL Phosphorus 4.0 (2.5-4.5) mg/dL Magnesium 2.2 (1.7-2.2) mg/dL Total Bilirubin (0.2-1.3) mg/dL AST (14-36) U/L ALT (7-56) U/L Alkaline Phosphatase (38-126) U/L Lactate Dehydrogenase 618 (333-699) U/L Total Creatine Kinase 449 H (35-230) U/L CK-MB (CK-2) 18.3 H (0.0-3.6) ng/mL CK-MB (CK-2) % 4.1 H (2.5-3.0) % Troponin I 13.40 H* ng/mL Total Protein (5.8-8.3) g/dL Albumin (3.0-4.8) g/dL Globulin gm/dL Albumin/Globulin Ratio (1.1-1.8) Triglycerides (35-160) mg/dL Cholesterol (130-200) mg/dL LDL Cholesterol Direct (0-129) mg/dL HDL Cholesterol (29-60) mg/dL TSH 3rd Generation (0.46-4.68) mIU/mL 07/22/17 Range/Units 17:21 WBC (4.5-11.0) 10^3/ul RBC (3.5-6.1) 10^6/uL Hgb (12.0-16.0) g/dL Hct (36.0-48.0) % MCV (80.0-105.0) fl MCH (25.0-35.0) pg MCHC (31.0-37.0) g/dl RDW (11.5-14.5) % Plt Count (120.0-450.0) 10^3/uL MPV (7.0-11.0) fl Gran % (50.0-68.0) % Lymph % (Auto) (22.0-35.0) % [place] % (Auto) (1.0-6.0) % Eos % (Auto) (1.5-5.0) % Baso % (Auto) (0.0-3.0) % Gran # (1.4-6.5) Lymph # (Auto) (1.2-3.4) [place] # (Auto) (0.1-0.6) Eos # (Auto) (0.0-0.7) Baso # (Auto) (0.0-2.0) K/mm3 APTT (25.1-36.5) Seconds Sodium (132-148) mmol/L Potassium (3.6-5.0) mmol/L Chloride (98-107) mmol/L Carbon Dioxide (21-33) mmol/L Anion Gap (10-20) BUN (7-21) mg/dL Creatinine (0.7-1.2) mg/dl Est GFR ( Amer) Est GFR (Non-Af Amer) Random Glucose (70-110) mg/dL Calcium (8.4-10.5) mg/dL Phosphorus (2.5-4.5) mg/dL Magnesium (1.7-2.2) mg/dL Total Bilirubin (0.2-1.3) mg/dL AST (14-36) U/L ALT (7-56) U/L Alkaline Phosphatase (38-126) U/L Lactate Dehydrogenase (333-699) U/L Total Creatine Kinase (35-230) U/L CK-MB (CK-2) (0.0-3.6) ng/mL CK-MB (CK-2) % (2.5-3.0) % Troponin I ng/mL Total Protein (5.8-8.3) g/dL Albumin (3.0-4.8) g/dL Globulin gm/dL Albumin/Globulin Ratio (1.1-1.8) Triglycerides (35-160) mg/dL Cholesterol (130-200) mg/dL LDL Cholesterol Direct (0-129) mg/dL HDL Cholesterol (29-60) mg/dL TSH 3rd Generation 0.99 (0.46-4.68) mIU/mL Laboratory Results - last 24 hr 07/22/17 07/22/17 07/22/17 17:21 17:21 20:20 WBC RBC Hgb Hct MCV MCH MCHC RDW Plt Count MPV Gran % Lymph % (Auto) [place] % (Auto) Eos % (Auto) Baso % (Auto) Gran # Lymph # (Auto) [place] # (Auto) Eos # (Auto) Baso # (Auto) APTT Sodium Potassium Chloride Carbon Dioxide Anion Gap BUN Creatinine Est GFR ( Amer) Est GFR (Non-Af Amer) Random Glucose Calcium Phosphorus 4.0 Magnesium 2.2 Total Bilirubin AST ALT Alkaline Phosphatase Lactate Dehydrogenase 618 Total Creatine Kinase 449 H CK-MB (CK-2) 18.3 H CK-MB (CK-2) % 4.1 H Troponin I 13.40 H* Total Protein Albumin Globulin Albumin/Globulin Ratio Triglycerides Cholesterol LDL Cholesterol Direct HDL Cholesterol TSH 3rd Generation 0.99 07/23/17 07/23/17 07/23/17 01:05 05:00 05:00 WBC 6.7 D RBC 3.53 Hgb 11.0 L Hct 32.7 L MCV 92.6 MCH 31.2 MCHC 33.6 RDW 12.1 Plt Count 343 MPV 9.4 Gran % 37.4 L Lymph % (Auto) 52.2 H [place] % (Auto) 6.1 H Eos % (Auto) 3.6 Baso % (Auto) 0.7 Gran # 2.51 Lymph # (Auto) 3.5 H [place] # (Auto) 0.4 Eos # (Auto) 0.2 Baso # (Auto) 0.05 APTT 132.7 H* Sodium 140 Potassium 4.4 Chloride 104 Carbon Dioxide 26 Anion Gap 14 BUN 13 Creatinine 0.7 Est GFR ( Amer) > 60 Est GFR (Non-Af Amer) > 60 Random Glucose 93 Calcium 9.5 Phosphorus Magnesium Total Bilirubin 0.4 AST 152 H D ALT 50 Alkaline Phosphatase 97 Lactate Dehydrogenase Total Creatine Kinase CK-MB (CK-2) CK-MB (CK-2) % Troponin I Total Protein 7.4 Albumin 4.1 Globulin 3.3 Albumin/Globulin Ratio 1.3 Triglycerides 164 H Cholesterol 233 H LDL Cholesterol Direct 142 H HDL Cholesterol 46 TSH 3rd Generation 07/23/17 08:45 WBC RBC Hgb Hct MCV MCH MCHC RDW Plt Count MPV Gran % Lymph % (Auto) [place] % (Auto) Eos % (Auto) Baso % (Auto) Gran # Lymph # (Auto) [place] # (Auto) Eos # (Auto) Baso # (Auto) APTT 53.5 H Sodium Potassium Chloride Carbon Dioxide Anion Gap BUN Creatinine Est GFR ( Amer) Est GFR (Non-Af Amer) Random Glucose Calcium Phosphorus Magnesium Total Bilirubin AST ALT Alkaline Phosphatase Lactate Dehydrogenase Total Creatine Kinase CK-MB (CK-2) CK-MB (CK-2) % Troponin I Total Protein Albumin Globulin Albumin/Globulin Ratio Triglycerides Cholesterol LDL Cholesterol Direct HDL Cholesterol TSH 3rd Generation Critical Care Progress Note - Nutrition Nutrition: Nutrition Category Date Time Status Heart Healthy Diet [DIET] Diets 07/23/17 Lunch Ordered Attending/Attestation - Attestation I have personally seen and examined this patient.: Yes I have fully participated in the care of the patient.: Yes I have reviewed all pertinent clinical information: Yes Notes (Text): 07/23/17 14:00 21 yo female with chest pain alleviated by nitro and rising troponin, now s/p coronary angio, which showed clear coronaries and grossly normal CO/CI/EF. Unclear etiology of chest pain in this 21 yo female-->discussed with Dr. Morales: no clear etiology. Will stop nitro drip and re-assess. ccm time 40 min
--- NOTE | 2017-07-23 09:50 | CON ---
DATE: 07/22/2017 CARDIOLOGY CONSULTATION HISTORY: The patient is a 21-year-old woman, who presents with classic substernal chest pain. Troponins were found to be elevated. A CT scan of the of the chest revealed no pulmonary embolism. She denies shortness of breath. PAST MEDICAL HISTORY: She is 2 weeks after a normal vaginal delivery of her baby. There were no complications. Her past medical history is free of cardiac disease. No hypertension or diabetes mellitus. FAMILY HISTORY: No ischemic coronary disease in her family. SOCIAL HISTORY: Does not smoke. Denies doing drugs. REVIEW OF SYSTEMS: Fourteen-point review of systems reviewed in detail. No cardiac symptomatology is noted. PHYSICAL EXAMINATION: VITAL SIGNS: Stable. NECK: Negative JVD. LUNGS: Without rales. HEART: Reveals S1, S2. EXTREMITIES: Without edema. LABORATORY DATA: EKG is within normal limits. Her troponins were found to be elevated with the troponin of 9.57, going up to 12. BUN and creatinine are unremarkable. Hemoglobin is 11. IMPRESSION: 1. [id number] myocardial infarction. 2. Unstable angina. 3. Anemia. 4. , 2 weeks. PLAN: Given these findings, we will obtain an echocardiogram today. We will need to do a cardiac catheterization to rule out coronary disease versus coronary spasm versus intracoronary thrombus. I have discussed the risks, benefits of catheterization with the patient in detail. The patient is agreeable. Delfin Morales MD
[2017-07-23] MEDS ORDERED: Lidocaine 2% Inj (20ml) ONE (11:47)
[2017-07-23] MEDS ORDERED: Phenylephrine 10 mg/ml Inj ONE (11:48)
[2017-07-23] MEDS ORDERED: Nitroglycerin 50mg in D5W 50 MG/250 ML BOTTLE IV ONE (11:49)
[2017-07-23] MEDS ORDERED: Iodixanol 320 MG/ML 200 ML BOTTLE IV ONE (11:49)
[2017-07-23] MEDS ORDERED: Iodixanol 320 MG/ML 100 ML BOTTLE IV ONE (11:49)
[2017-07-23] MEDS ORDERED: Iohexol 350mgl/ml 50 ML ONE (11:49)
[2017-07-23] MEDS ORDERED: Midazolam 2 MG/2 ML VIAL ONE ×2 (11:49→12:12)
[2017-07-23] MEDS ORDERED: Sodium Chloride 0.9% 1,000 ML IV SCH (13:15)
--- NOTE | 2017-07-23 15:03 | CARDCATH ---
PROCEDURE DATE: 07/23/2017 CARDIAC CATHETERIZATION HISTORY: The patient is a 21-year-old woman who is 2 weeks . She was found to have chest pain, which is classic for angina. Her troponins are found to be elevated. A CT scan performed revealed no pulmonary embolism. Because of this, cardiac catheterization was recommended. PROCEDURE: Left heart catheterization with coronary arteriography, left ventriculogram, supra-aortic valvular injection. There were no complications. I performed moderate sedation which included the presence of an independent trained observer that assisted in monitoring the patient's level of consciousness and physiologic status. After administration of Versed and fentanyl, my intra-service time was 15 minutes. The findings on catheterization revealed a left ventricle that essentially contracted normal. There was a hint of mild hypokinesis in the apex of the heart, overall ejection fraction was 55%-60%. Her coronary anatomy revealed a right dominant circulation. The RCA was within normal limits. The left main artery was within normal limits. The LAD and diagonal vessels were within normal limits. The circumflex artery and obtuse marginal branches were within normal limits. The patient tolerated the procedure well. Manual compression was used to close the femoral artery site. The patient tolerated the procedure well. In summary, the procedure revealed normal coronary arteries, no aortic insufficiency and supra-aortic valvular injection. Normal ejection fraction with a hint of mild hypokinesis in the apex of the heart. Given these findings, there is no ischemic cardiac explanation for elevated troponins. There is a hint of hypokinesis of the apex of the heart which is minimal. The question is does this represent a mild form of cardiomyopathy. I have discussed this with the family in detail. We will follow up with further discussions as an outpatient in the office. Delfin Morales MD
[2017-07-23] MEDS ORDERED: Morphine 4 mg/ml ISec IVP STA (15:23)
[2017-07-24 05:52] VITALS: TEMP 98.5
[2017-07-24 06:51] LABS: URINE BILIRUBIN NEGATIVE (NEGATIVE); URINE BLOOD LARGE (NEGATIVE); URINE GLUCOSE (UA) NEGATIVE (NEGATIVE); URINE LEUKOCYTE ESTERASE MODERATE Leu/uL (NEGATIVE); URINE PROTEIN NEGATIVE mg/dL (<30 mg/dL)
[2017-07-24 07:02] LABS: URINE APPEARANCE SL CLOUDY (CLEAR); URINE COLOR YELLOW (YELLOW)
[2017-07-24 07:03] LABS: URINE BACTERIA MOD (NEG); URINE EPITHELIAL CELLS 0 - 2 /hpf (0-5); URINE WBC 15 - 20 /hpf (0-6)
[2017-07-24 07:06] LABS: HEMOGLOBIN 10.5 g/dL (12.0-16.0); MEAN CELL VOLUME 93.2 fl (80.0-105.0); MEAN CORPUSCULAR HEMOGLOBIN 30.9 pg (25.0-35.0); MEAN CORPUSCULAR HGB CONC 33.1 g/dl (31.0-37.0); MEAN PLATELET VOLUME 9.4 fl (7.0-11.0); RBC 3.4 10^6/uL (3.5-6.1)
[2017-07-24 07:33] LABS: ALB/GLOB RATIO 1.2 (1.1-1.8); ALBUMIN 3.8 g/dL (3.0-4.8); ALT/SGPT 38 U/L (7-56); AST/SGOT 121 U/L (14-36); BLOOD UREA NITROGEN 10 mg/dL (7-21); CALCIUM 9.5 mg/dL (8.4-10.5); GFR AFRICAN-AMERICAN > 60; GFR NON-AFRICAN AMERICAN > 60
[2017-07-24 09:57] VITALS: BP 117/68; PULSE 66; RESP 20; O2SAT 97
--- NOTE | 2017-07-24 11:26 | CP.CCUPN ---
<Garfield Arias - Last Filed: 07/24/17 11:21> CCU Subjective - Physician Review Subjective (Free Text): 07/23/17 08:38 Patient seen and examined at bedside in no acute distress patient states her chest pain however increased last night from initial presentation. Initially patient's chest pain was a 6/10 overnight was a 8/10 relieved with nitro paste. Patient currently experiencing chest pain, shortness of breath, nausea, dizziness. Denies fevers, chills, abdominal pain, body aches, cough. 07/24/17 11:21 Patient seen and examined at bedside in no acute distress. Chest pain has resolved. Denies shortness of breath, nausea, abdominal pain, vomiting, diarrhea , cough, headache, dizziness, dysuria. CCU Objective - Vital Signs / Intake & Output Vital Signs (Last 4 hours): Vital Signs Pulse Resp BP Pulse Ox 07/24/17 09:20 66 20 97 07/24/17 09:14 63 H 97 07/24/17 09:00 65 20 117/68 93 L 07/24/17 08:50 85 17 98 07/24/17 08:40 69 99 07/24/17 08:30 77 30 H 122/59 L 96 07/24/17 08:20 66 17 99 07/24/17 08:10 67 12 98 07/24/17 08:00 69 22 117/73 99 07/24/17 07:50 65 18 98 07/24/17 07:40 63 39 H 99 07/24/17 07:30 62 21 115/70 97 Intake and Output (Last 8hrs): Intake & Output 07/23/17 07/24/17 07/24/17 22:59 06:59 14:59 Intake Total 625 420 Output Total 100 500 Balance 525 -80 Intake: IV 625 420 Heparin 21 IVF 600 Nitro drip 4 420 Output: Urine 100 500 Urine, Voided 100 500 - Physical Exam Head: Positive for: Atraumatic, Normocephalic Extroacular Muscles: Positive for: EOMI Mouth: Positive for: Moist Mucous Membranes Respiratory/Chest: Positive for: Clear to Auscultation, Good Air Exchange, Other (non-reproducible chest pain ). Negative for: Respiratory Distress, Accessory Muscle Use Cardiovascular: Positive for: Regular Rate and Rhythm, Normal S1, S2. Negative for: Murmurs Abdomen: Negative for: Tenderness, Distention, Peritoneal Signs Upper Extremity: Positive for: Normal Inspection. Negative for: Cyanosis, Edema Lower Extremity: Positive for: Normal Inspection, NORMAL PULSES (+2 good distal pulses). Negative for: Edema, CALF TENDERNESS, Cyanosis Neurological: Positive for: GCS=15, Speech Normal Skin: Positive for: Warm, Dry, Normal Color. Negative for: Rashes Psychiatric: Positive for: Alert, Oriented x 3, Normal Insight, Normal Concentration - Medications Active Medications: Active Medications Generic Name Dose Route Start Last Admin Trade Name Freq PRN Reason Stop Dose Admin Nitrofurantoin Macrocrystals 100 mg 07/24/17 10:00 07/24/17 09:49 Macrobid PO 100 mg Q12 KIRK Administration Protocol Ondansetron HCl 4 mg 07/23/17 08:32 07/23/17 09:01 Zofran Inj IVP 4 mg Q6H PRN Administration Nausea/Vomiting - Patient Studies Lab Studies: Lab Studies 07/24/17 07/24/17 07/24/17 Range/Units 06:42 05:50 05:50 WBC 5.0 D (4.5-11.0) 10^3/ul RBC 3.40 L (3.5-6.1) 10^6/uL Hgb 10.5 L (12.0-16.0) g/dL Hct 31.7 L (36.0-48.0) % MCV 93.2 (80.0-105.0) fl MCH 30.9 (25.0-35.0) pg MCHC 33.1 (31.0-37.0) g/dl RDW 12.0 (11.5-14.5) % Plt Count 313 (120.0-450.0) 10^3/uL MPV 9.4 (7.0-11.0) fl ESR 37 H (0.0-20.0) mm/hr Sodium 139 (132-148) mmol/L Potassium 4.2 (3.6-5.0) mmol/L Chloride 104 (98-107) mmol/L Carbon Dioxide 27 (21-33) mmol/L Anion Gap 13 (10-20) BUN 10 (7-21) mg/dL Creatinine 0.7 (0.7-1.2) mg/dl Est GFR ( Amer) > 60 Est GFR (Non-Af Amer) > 60 Random Glucose 94 (70-110) mg/dL Calcium 9.5 (8.4-10.5) mg/dL Total Bilirubin 0.4 (0.2-1.3) mg/dL AST 121 H D (14-36) U/L ALT 38 (7-56) U/L Alkaline Phosphatase 85 (38-126) U/L Total Protein 6.9 (5.8-8.3) g/dL Albumin 3.8 (3.0-4.8) g/dL Globulin 3.2 gm/dL Albumin/Globulin Ratio 1.2 (1.1-1.8) Urine Color Yellow (YELLOW) Urine Appearance Sl cloudy (CLEAR) Urine pH 7.0 (4.7-8.0) Ur Specific [place] 1.020 (1.005-1.035) Urine Protein Negative (<30 mg/dL) mg/dL Urine Glucose (UA) Negative (NEGATIVE) mg/dL Urine Ketones Negative (NEGATIVE) mg/dL Urine Blood Large H (NEGATIVE) Urine Nitrate Negative (NEGATIVE) Urine Bilirubin Negative (NEGATIVE) Urine Urobilinogen 1.0 H (<1 E.U./dL) E.U./dL Ur Leukocyte Esterase Moderate H (NEGATIVE) Christie/uL Urine RBC 5 - 10 (0-2) /hpf Urine WBC 15 - 20 (0-6) /hpf Ur Epithelial Cells 0 - 2 (0-5) /hpf Urine Bacteria Mod (NEG) Laboratory Results - last 24 hr 07/24/17 07/24/17 07/24/17 05:50 05:50 06:42 WBC 5.0 D RBC 3.40 L Hgb 10.5 L Hct 31.7 L MCV 93.2 MCH 30.9 MCHC 33.1 RDW 12.0 Plt Count 313 MPV 9.4 ESR 37 H Sodium 139 Potassium 4.2 Chloride 104 Carbon Dioxide 27 Anion Gap 13 BUN 10 Creatinine 0.7 Est GFR ( Amer) > 60 Est GFR (Non-Af Amer) > 60 Random Glucose 94 Calcium 9.5 Total Bilirubin 0.4 AST 121 H D ALT 38 Alkaline Phosphatase 85 Total Protein 6.9 Albumin 3.8 Globulin 3.2 Albumin/Globulin Ratio 1.2 Urine Color Yellow Urine Appearance Sl cloudy Urine pH 7.0 Ur Specific [place] 1.020 Urine Protein Negative Urine Glucose (UA) Negative Urine Ketones Negative Urine Blood Large H Urine Nitrate Negative Urine Bilirubin Negative Urine Urobilinogen 1.0 H Ur Leukocyte Esterase Moderate H Urine RBC 5 - 10 Urine WBC 15 - 20 Ur Epithelial Cells 0 - 2 Urine Bacteria Mod Review of Systems - EENT Eyes: absent: Blurred Vision, Change in Vision - Cardiovascular Cardiovascular: absent: Chest Pain, Dyspnea, Dyspnea on Exertion - Respiratory Respiratory: absent: Cough, Dyspnea - Gastrointestinal Gastrointestinal: UNREMARKABLE. absent: Diarrhea, Nausea, Vomiting - Genitourinary Genitourinary: absent: Dysuria - Musculoskeletal Musculoskeletal: absent: Abnormal Gait, Arthralgias - Integumentary Integumentary: absent: Bleeding Lesions - Psychiatric Psychiatric: UNREMARKABLE. absent: Anxiety - Endocrine Endocrine: UNREMARKABLE. absent: Fatigue, Palpitations - Hematologic/Lymphatic Hematologic: UNREMARKABLE Critical Care Progress Note - Nutrition Nutrition: Nutrition Category Date Time Status Heart Healthy Diet [DIET] Diets 07/23/17 Lunch Ordered Assessment/Plan - Assessment and Plan (Free Text) Assessment: 21 F with no significant past medical history aside from being post 2 weeks however with significant family history for cardiac disease of congenital and vasculitic etiology presenting with chest pain described as a brick sitting on her chest a 6/10 non radiating associated with shortness of breath. Upon being admitted to the ED patient states chest pain had resolved however labs revealed elevated cardiac enzymes which trended upwards. Patient was started on heparin drip. Bedside echo was performed which revealed no signs of pericardial effusion, with minimally depressed EF. Patient underwent successful catheterization. Neurologic -Patient is alert awake and oriented x 3 -Patient is fully aware of her current status and the tests that will performed and reasoning behind the rhea Cardiovascular -Patient currently experienced chest pain 8/10 associated with shortness of breath overnight, pain was relieved with nitropaste. -Patient began experiencing pain again, nitro drip started, patient became nauseous. Drip was stopped zofran given, will restart drip. -Troponin initially 9.57, last troponin was 13.40 -Patient is to have echocardiogram performed; awaiting official results -Patient will underwent successful catheterization. 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 Morales as outpatient Pulmonary -Shortness of breath has resolved Gastrointestinal -Nausea resolved; zofran no longer needed Immunologic/Infectious -Patient found to have UTI, will be treated with macrobid Genitourinary -UTI; macrobid ordered Disposition: patient cleared by cardiology for discharge will follow up appointment as outpatient <EsauKen - Last Filed: 07/24/17 11:37> CCU Objective - Vital Signs / Intake & Output Vital Signs (Last 4 hours): Vital Signs Pulse Resp BP Pulse Ox 07/24/17 09:20 66 20 97 07/24/17 09:14 63 H 97 07/24/17 09:00 65 20 117/68 93 L 07/24/17 08:50 85 17 98 07/24/17 08:40 69 99 07/24/17 08:30 77 30 H 122/59 L 96 07/24/17 08:20 66 17 99 07/24/17 08:10 67 12 98 07/24/17 08:00 69 22 117/73 99 07/24/17 07:50 65 18 98 07/24/17 07:40 63 39 H 99 Intake and Output (Last 8hrs): Intake & Output 07/23/17 07/24/17 07/24/17 22:59 06:59 14:59 Intake Total 625 420 Output Total 100 500 Balance 525 -80 Intake: IV 625 420 Heparin 21 IVF 600 Nitro drip 4 420 Output: Urine 100 500 Urine, Voided 100 500 - Medications Active Medications: Active Medications Generic Name Dose Route Start Last Admin Trade Name Freq PRN Reason Stop Dose Admin Nitrofurantoin Macrocrystals 100 mg 07/24/17 10:00 07/24/17 09:49 Macrobid PO 100 mg Q12 KIRK Administration Protocol Ondansetron HCl 4 mg 07/23/17 08:32 07/23/17 09:01 Zofran Inj IVP 4 mg Q6H PRN Administration Nausea/Vomiting - Patient Studies Lab Studies: Lab Studies 07/24/17 07/24/17 07/24/17 Range/Units 06:42 05:50 05:50 WBC 5.0 D (4.5-11.0) 10^3/ul RBC 3.40 L (3.5-6.1) 10^6/uL Hgb 10.5 L (12.0-16.0) g/dL Hct 31.7 L (36.0-48.0) % MCV 93.2 (80.0-105.0) fl MCH 30.9 (25.0-35.0) pg MCHC 33.1 (31.0-37.0) g/dl RDW 12.0 (11.5-14.5) % Plt Count 313 (120.0-450.0) 10^3/uL MPV 9.4 (7.0-11.0) fl ESR 37 H (0.0-20.0) mm/hr Sodium 139 (132-148) mmol/L Potassium 4.2 (3.6-5.0) mmol/L Chloride 104 (98-107) mmol/L Carbon Dioxide 27 (21-33) mmol/L Anion Gap 13 (10-20) BUN 10 (7-21) mg/dL Creatinine 0.7 (0.7-1.2) mg/dl Est GFR ( Amer) > 60 Est GFR (Non-Af Amer) > 60 Random Glucose 94 (70-110) mg/dL Calcium 9.5 (8.4-10.5) mg/dL Total Bilirubin 0.4 (0.2-1.3) mg/dL AST 121 H D (14-36) U/L ALT 38 (7-56) U/L Alkaline Phosphatase 85 (38-126) U/L Total Protein 6.9 (5.8-8.3) g/dL Albumin 3.8 (3.0-4.8) g/dL Globulin 3.2 gm/dL Albumin/Globulin Ratio 1.2 (1.1-1.8) Urine Color Yellow (YELLOW) Urine Appearance Sl cloudy (CLEAR) Urine pH 7.0 (4.7-8.0) Ur Specific [place] 1.020 (1.005-1.035) Urine Protein Negative (<30 mg/dL) mg/dL Urine Glucose (UA) Negative (NEGATIVE) mg/dL Urine Ketones Negative (NEGATIVE) mg/dL Urine Blood Large H (NEGATIVE) Urine Nitrate Negative (NEGATIVE) Urine Bilirubin Negative (NEGATIVE) Urine Urobilinogen 1.0 H (<1 E.U./dL) E.U./dL Ur Leukocyte Esterase Moderate H (NEGATIVE) Christie/uL Urine RBC 5 - 10 (0-2) /hpf Urine WBC 15 - 20 (0-6) /hpf Ur Epithelial Cells 0 - 2 (0-5) /hpf Urine Bacteria Mod (NEG) Laboratory Results - last 24 hr 07/24/17 07/24/17 07/24/17 05:50 05:50 06:42 WBC 5.0 D RBC 3.40 L Hgb 10.5 L Hct 31.7 L MCV 93.2 MCH 30.9 MCHC 33.1 RDW 12.0 Plt Count 313 MPV 9.4 ESR 37 H Sodium 139 Potassium 4.2 Chloride 104 Carbon Dioxide 27 Anion Gap 13 BUN 10 Creatinine 0.7 Est GFR ( Amer) > 60 Est GFR (Non-Af Amer) > 60 Random Glucose 94 Calcium 9.5 Total Bilirubin 0.4 AST 121 H D ALT 38 Alkaline Phosphatase 85 Total Protein 6.9 Albumin 3.8 Globulin 3.2 Albumin/Globulin Ratio 1.2 Urine Color Yellow Urine Appearance Sl cloudy Urine pH 7.0 Ur Specific [place] 1.020 Urine Protein Negative Urine Glucose (UA) Negative Urine Ketones Negative Urine Blood Large H Urine Nitrate Negative Urine Bilirubin Negative Urine Urobilinogen 1.0 H Ur Leukocyte Esterase Moderate H Urine RBC 5 - 10 Urine WBC 15 - 20 Ur Epithelial Cells 0 - 2 Urine Bacteria Mod Critical Care Progress Note - Nutrition Nutrition: Nutrition Category Date Time Status Heart Healthy Diet [DIET] Diets 07/23/17 Lunch Ordered Assessment/Plan - Assessment and Plan (Free Text) Assessment: Patient seen and examined on rounds with resident, agree with note with following additions/exceptions: Patient is 21yo female without sig PMHx presented 2 weeks post with chest pain and elevated troponin, s/p cardiac cath which did not reveal any coronary pathology. Currently the patient is afebrile, HD stable, comfortable in NAD, DENIES ANY CHEST PAIN, not on nitro drip. ECHO done, results pending. Unclear etiology of elevated troponin, ?post cardiomyopathy. To be seen by cardiology today, possible home discharge if cleared by cardiology, follow up as outpatient. ASA, plavix held due to vaginal bleeding. Prn Zofran, follow up cardiology, ECHO. Stable.
--- NOTE | 2017-07-24 12:21 | DS ---
I saw her resting comfortably in the Intensive Care Unit. She has no chest pain or shortness of breath at this time. She is in good spirits. She is eating well. She is walking in the room a little bit. No complaints. She had a cardiac cath yesterday, which was okay with no stents placed. PHYSICAL EXAMINATION VITAL SIGNS: She has 98.5 temperature, 62 pulse, 118/73 blood pressure, 12 respiratory rate, 98% O2 sat on room air. HEENT: Head is atraumatic, normocephalic. HEART: Regular rate. LUNGS: Clear to auscultation. ABDOMEN: Soft. EXTREMITIES: No edema. She is on only Zofran as needed for nauseousness. Otherwise, no medications. DATA: Her white count is 5, hemoglobin 10.5, hematocrit 31.7, platelets of 313. She has a 139 sodium, potassium 4.2, BUN 10, creatinine 0.7. GFR is greater than 60. Sugar is 94. Calcium is 9.5, total bili is 0.4, AST is 121, ALT is 38, alkaline phosphatase 85, total protein 6.9. She does have urinary tract infection, which is interesting and I will put her on antibiotics. I do not think she is going to need any cardiovascular medications. I will discuss that with the med care manager and hopefully, she will be able to be discharged today and since she did so well with the cardiac cath, I will put her on Macrobid twice a day and will get a prescription for that and I am hoping to discharge her. She came in with chest pain with elevated troponins and hoping to be cardiomyopathy and UTI. Mega Jaimes DO
--- NOTE | 2017-07-24 14:19 | PN ---
DATE: 07/24/2017 CARDIOLOGY FOLLOWUP SUBJECTIVE: The patient is without complaints. No shortness of breath. There is mild tenderness in the right groin site. PHYSICAL EXAMINATION: VITAL SIGNS: Blood pressure 107/58, heart rates in the 60s. NECK: Negative JVD. LUNGS: Without rales. HEART: Reveals S1, S2. EXTREMITIES: Without edema. Right groin site is stable. No hematoma. LABORATORY DATA: Hemoglobin is 10.5. Chemistries, BUN and creatinine are unremarkable. IMPRESSION: 1. Elevated troponins. 2. Normal coronary arteries. 3. Minimal segmental wall motion abnormality. PLAN: Given these findings, the patient's cardiac status is stable. Her elevated troponins cannot be definitively explained. However, an unusual form of cardiomyopathy might be at play. The patient is stable and will be discharged today. I have given the patient followup and instructions. She will see me in the office in 3-4 weeks. I have discussed with her about the findings. Delfin Morales MD
== END 2017-07-24 12:00 | disposition home or self-care (01) | DRG 376 ==
LOC: ED 11:57 → ERH 17:06 → CCU 17:42
PROVIDERS: ADMIT Family Medicine; ATTEND Family Medicine
PROC: 4A023N7 Measurement of Cardiac Sampling and Pressure, Left Heart, Percutaneous Approach (ICD-10-PCS; principal; 2017-07-23)
PROC: B211YZZ Fluoroscopy of Multiple Coronary Arteries using Other Contrast (ICD-10-PCS; 2017-07-23)
PROC: B215YZZ Fluoroscopy of Left Heart using Other Contrast (ICD-10-PCS; 2017-07-23)
DX: O90.3 Peripartum cardiomyopathy (principal); O86.20 Urinary tract infection following delivery, unspecified; D64.9 Anemia, unspecified; Z88.0 Allergy status to penicillin

== ENCOUNTER 2017-07-24 14:05 | Observation (INO) | payer OTHER ==
[2017-07-24 14:05] VITALS: BMI 21.4
--- NOTE | 2017-07-24 14:36 | ED PDOC ---
Arrival/HPI - General Chief Complaint: Syncope Time Seen by Provider: 07/24/17 14:28 Historian: Patient - History of Present Illness Narrative History of Present Illness (Text): 07/24/17 14:36 This 21 yo female with pmh post cardiomyopathy, presents to this ED c/o syncope while taking a shower x 1 hour. Patient stated she was admitted in the hospital due to chest pain, and elevated Troponin. Patient had an unremarkable , cardiac cath, and echocardiography. Patient was discharge home this morning after 2 days hospitalization. Patient denies sob, chest pain, abdominal pain , or leg pain. Time/Duration: Other (see hpi) Context: Home Past Medical History - Provider Review Nursing Documentation Reviewed: Yes - Infectious Disease Hx of Infectious Diseases: None - Cardiac Other/Comment: Post cardiomyopathy - Pulmonary Hx Respiratory Disorders: No - Neurological Hx Neurological Disorder: No - HEENT Hx HEENT Disorder: No - Endocrine/Metabolic Hx Endocrine Disorders: No - Hematological/Oncological Hx Blood Disorders: No - Integumentary Hx Dermatological Disorder: No - Musculoskeletal/Rheumatological Hx Musculoskeletal Disorders: No Hx Falls: No - Gastrointestinal Hx Gastrointestinal Disorders: No - Genitourinary/Gynecological Hx Genitourinary Disorders: No - Psychiatric Hx Psychophysiologic Disorder: No Hx Substance Use: No - Anesthesia Hx Anesthesia: No Family/Social History - Physician Review Nursing Documentation Reviewed: Yes Family/Social History: Other (noncontributory) Smoking Status: Never Smoked Hx Alcohol Use: No Hx Substance Use: No Allergies/Home Meds Allergies/Adverse Reactions: Allergies Penicillins Allergy (Verified 07/22/17 18:33) ANAPHYLAXIS Home Medications: Home Meds Medication Instructions Recorded Confirmed Nitrofurantoin Macrocrystals 100 mg PO Q12H 07/24/17 07/24/17 [Macrobid] Review of Systems - Review of Systems Constitutional: Normal. absent: Fatigue, Weight Change, Fevers Eyes: Normal ENT: Normal Respiratory: Normal. absent: SOB, Cough Cardiovascular: Syncope. absent: Chest Pain, Palpitations, Edema, Calf Pain, GODINEZ, Orthopnea Gastrointestinal: Normal. absent: Abdominal Pain, Nausea, Vomiting Genitourinary Female: Vaginal Bleeding. absent: Dysuria, Frequency, Hematuria, Vaginal Discharge Musculoskeletal: Normal. absent: Back Pain, Neck Pain Skin: Normal Neurological: Normal. absent: Headache, Dizziness, Focal Weakness, Gait Changes , Speech Changes, Facial Droop, Disequilibrium, Seizure Endocrine: Normal Hemo/Lymphatic: Normal Psychiatric: Normal Physical Exam Vital Signs Temp Pulse Resp BP Pulse Ox 07/24/17 14:29 98.8 F 65 18 118/48 L 97 Temperature: Afebrile Blood Pressure: Normal Pulse: Regular Respiratory Rate: Normal Appearance: Positive for: Well-Appearing, Non-Toxic, Comfortable Pain Distress: None Mental Status: Positive for: Alert and Oriented X 3 - Systems Exam Head: Present: Atraumatic, Normocephalic Pupils: Present: PERRL Extroacular Muscles: Present: EOMI Conjunctiva: Present: Normal Mouth: Present: Moist Mucous Membranes Neck: Present: Normal Range of Motion Respiratory/Chest: Present: Clear to Auscultation, Good Air Exchange. No: Respiratory Distress, Accessory Muscle Use Cardiovascular: Present: Regular Rate and Rhythm, Normal S1, S2. No: Murmurs Abdomen: No: Tenderness, Distention, Peritoneal Signs Back: Present: Normal Inspection Upper Extremity: Present: Normal Inspection, Normal ROM. No: Cyanosis, Edema Lower Extremity: Present: Normal Inspection, Normal ROM. No: Edema Neurological: Present: GCS=15, CN II-XII Intact, Speech Normal, Motor Func Grossly Intact, Normal Sensory Function, Normal Cerebellar Funct, Gait Normal Skin: Present: Warm, Dry, Normal Color. No: Rashes Psychiatric: Present: Alert, Oriented x 3, Normal Insight, Normal Concentration Medical Decision Making ED Course and Treatment: 07/24/17 17:[address] Jaimes regarding patient's syncope. Ct scan recommends elective MRI. I recommended observation for syncope. He recommended Dr. Morales, and Tomasa Weiner consult He asked to order a routine MRI of brain , and he will f/u MRI result, and he will see pt tomorrow. 07/24/17 17:[address] Craig Randolph, neurologist. I reviewed history and CT brain finding. He agreed with MRI of Brain w/o contrast for tomorrow. Re-evaluation Time: 17:58 Reassessment Condition: Re-examined, Improving,but remains with symptoms - Lab Interpretations Lab Results: 07/24/17 15:15 07/24/17 15:15 Lab Results 07/24/17 15:15: Sodium 139, Potassium 4.0, Chloride 103, Carbon Dioxide 27, Anion Gap 13, BUN 12, Creatinine 0.7, Est GFR ( Amer) > 60, Est GFR (Non- Af Amer) > 60, Random Glucose 100, Calcium 9.7, Total Bilirubin 0.4, AST 94 H D , ALT 43, Alkaline Phosphatase 86, Total Protein 7.3, Albumin 4.0, Globulin 3.3 , Albumin/Globulin Ratio 1.2 07/24/17 15:15: WBC 5.3, RBC 3.28 L, Hgb 10.2 L, Hct 30.4 L, MCV 92.7, MCH 31.1 , MCHC 33.6, RDW 11.9, Plt Count 266, MPV 9.2, Gran % 60.2, Lymph % (Auto) 29.1 , [place] % (Auto) 7.8 H, Eos % (Auto) 2.3, Baso % (Auto) 0.6, Gran # 3.16, Lymph # (Auto) 1.5, [place] # (Auto) 0.4, Eos # (Auto) 0.1, Baso # (Auto) 0.03 I have reviewed the lab results: Yes Interpretation: No clinic. lab abnormalty - RAD Interpretation Narrative RAD Interpretations (Text): 07/24/17 17:47 PROCEDURE: CT HEAD WITHOUT CONTRAST. FINDINGS: HEMORRHAGE: No intracranial hemorrhage. BRAIN: Normal prather-white matter differentiation and density are appreciated throughout the cerebrum and cerebellum with the brainstem appearing unremarkable as well. There is no mass effect. There is no suspicious extra-axial fluid collection and the midline brain anatomy appears diffusely unremarkable. There is a small 1 cm calcifications seen lateral to the posterior superior sagittal sinus at the right parietal region potentially reflecting a small calcified meningioma , en plaque. VENTRICLES: Unremarkable. No hydrocephalus. CALVARIUM: Unremarkable. PARANASAL SINUSES: Unremarkable as visualized. No significant inflammatory changes. MASTOID AIR CELLS: Unremarkable as visualized. No inflammatory changes. OTHER FINDINGS: None. IMPRESSION: Normal appearing brain by standard CT criteria with no acute findings. A small calcified meningioma may be present at the medial right parietal extra-axial space. Follow-up elective MRI without contrast can be performed for greater characterization. 07/24/17 20:22 EXAM: MR Head Without Intravenous Contrast FINDINGS: Brain: There is no significant white matter disease. No cerebral edema. There is no restricted diffusion within the brain to suggest acute ischemic change. Within the superior right parafalcine region, there is a 1.4 x 1.0 cm extra-axial focus of magnetic susceptibility, consistent with the calcification visualized on the prior CT. This is consistent with a prominent dural calcification or calcified meningioma. Midline shift: No midline shift. Ventricles: No ventriculomegaly. Bones/joints: No acute abnormality. Sinuses: Small mucous retention cysts or polyps are visualized within the right maxillary sinus and a few left ethmoid air cells. No acute sinusitis. Mastoid air cells: No mastoid effusion. Orbits: No acute abnormality, as visualized. Vertebral arteries: A dominant left vertebral artery is visualized. IMPRESSION: 1. No acute intracranial abnormality Radiology Orders: 07/24/17 14:43 HEAD W/O CONTRAST [CT] Stat 07/24/17 14:44 CHEST PORTABLE [RAD] Stat - Medication Orders Current Medication Orders: Ferrous Sulfate (Feosol) 324 mg PO BID KIRK Sodium Chloride (Sodium Chloride 0.45%) 1,000 mls @ 60 mls/hr IV .[id number] KIRK Last Admin: 07/24/17 19:41 Dose: 60 mls/hr eMAR Start Stop Document 07/24/17 19:41 GMD (Rec: 07/24/17 19:42 GMD [id number]) Intravenous Solution Start Date 07/24/17 Start Time 19:41 Nitrofurantoin Macrocrystals (Macrobid) 100 mg PO Q12H KIRK PRN Reason: Protocol Last Admin: 07/24/17 19:41 Dose: 100 mg Discontinued Medications Sodium Chloride (Sodium Chloride 0.9%) 1,000 mls @ 999 mls/hr IV .[id number] STA Stop: 07/24/17 15:44 Last Admin: 07/24/17 15:35 Dose: 999 mls/hr eMAR Start Stop Document 07/24/17 15:35 GMD (Rec: 07/24/17 15:36 GMD [id number]) Intravenous Solution Start Date 07/24/17 Start Time 15:36 End Date 07/24/17 End time 16:37 Total Infusion Time 61 Disposition/Present on Arrival - Present on Arrival Any Indicators Present on Arrival: No History of DVT/PE: No History of Uncontrolled Diabetes: No Urinary Catheter: No History of Decub. Ulcer: No History Surgical Site Infection Following: None - Disposition Have Diagnosis and Disposition been Completed?: Yes Diagnosis: Syncope, Abnormal CT of brain, History of cardiomyopathy Disposition: HOSPITALIZED Disposition Time: 17:59 Patient Plan: Observation Patient Problems: Current Active Problems Problem Status Onset Syncope Acute Abnormal CT of brain Acute History of cardiomyopathy Acute Condition: STABLE
[2017-07-24] MEDS ORDERED: Sodium Chloride 0.9% 1,000 ML IV STA (14:44)
[2017-07-24 15:39] LABS: BASO # 0.03 K/mm3 (0.0-2.0); BASO % 0.6 % (0.0-3.0); EOS # 0.1 (0.0-0.7); EOS % 2.3 % (1.5-5.0); GRAN # 3.16 (1.4-6.5); GRAN % 60.2 % (50.0-68.0); HEMOGLOBIN 10.2 g/dL (12.0-16.0); LYMPH # 1.5 (1.2-3.4); LYMPH % 29.1 % (22.0-35.0); MEAN CELL VOLUME 92.7 fl (80.0-105.0); MEAN CORPUSCULAR HEMOGLOBIN 31.1 pg (25.0-35.0); MEAN CORPUSCULAR HGB CONC 33.6 g/dl (31.0-37.0); MEAN PLATELET VOLUME 9.2 fl (7.0-11.0); MONO # 0.4 (0.1-0.6); MONO % 7.8 % (1.0-6.0); RBC 3.28 10^6/uL (3.5-6.1); RED CELL DISTRIBUTION WIDTH 11.9 % (11.5-14.5); WHITE BLOOD COUNT 5.3 10^3/ul (4.5-11.0)
[2017-07-24 15:55] LABS: ALB/GLOB RATIO 1.2 (1.1-1.8); ALT/SGPT 43 U/L (7-56); AST/SGOT 94 U/L (14-36); BLOOD UREA NITROGEN 12 mg/dL (7-21); CALCIUM 9.7 mg/dL (8.4-10.5); GFR AFRICAN-AMERICAN > 60; GFR NON-AFRICAN AMERICAN > 60
--- NOTE | 2017-07-24 17:25 | CT ---
PROCEDURE: CT HEAD WITHOUT CONTRAST. HISTORY: syncope COMPARISON: None available. TECHNIQUE: Axial computed tomography images were obtained through the head/brain without intravenous contrast. Radiation dose: Total exam DLP = 751.15 mGy-cm. This CT exam was performed using one or more of the following dose reduction techniques: Automated exposure control, adjustment of the mA and/or kV according to patient size, and/or use of iterative reconstruction technique. FINDINGS: HEMORRHAGE: No intracranial hemorrhage. BRAIN: Normal prather-white matter differentiation and density are appreciated throughout the cerebrum and cerebellum with the brainstem appearing unremarkable as well. There is no mass effect. There is no suspicious extra-axial fluid collection and the midline brain anatomy appears diffusely unremarkable. There is a small 1 cm calcifications seen lateral to the posterior superior sagittal sinus at the right parietal region potentially reflecting a small calcified meningioma, en plaque. VENTRICLES: Unremarkable. No hydrocephalus. CALVARIUM: Unremarkable. PARANASAL SINUSES: Unremarkable as visualized. No significant inflammatory changes. MASTOID AIR CELLS: Unremarkable as visualized. No inflammatory changes. OTHER FINDINGS: None. IMPRESSION: Normal appearing brain by standard CT criteria with no acute findings. A small calcified meningioma may be present at the medial right parietal extra-axial space. Follow-up elective MRI without contrast can be performed for greater characterization.
--- NOTE | 2017-07-24 17:58 | RAD ---
HISTORY: syncope COMPARISON: 07/22/2017. FINDINGS: LUNGS: No active pulmonary disease. PLEURA: No significant pleural effusion identified, no pneumothorax apparent. CARDIOVASCULAR: Normal. OSSEOUS STRUCTURES: No significant abnormalities. Incompletely visualized dextroscoliosis VISUALIZED UPPER ABDOMEN: Normal. OTHER FINDINGS: None. IMPRESSION: No active disease. No significant interval change compared to the prior examination(s).
[2017-07-24] MEDS ORDERED: Sodium Chloride 0.45% 1,000 ML IV SCH (18:30)
--- NOTE | 2017-07-24 19:56 | MRI ---
EXAM: MR Head Without Intravenous Contrast EXAM DATE/TIME: 07/24/2017 6:14 PM CLINICAL HISTORY: The patient age is 21 years old and is female; Signs and symptoms; Dizziness; Patient HX: Patient passed out this morning; Additional info: Syncope abnormal CT brain Facility exam id and description: Mri br s brain without contrast TECHNIQUE: Magnetic resonance images of the head/brain without intravenous contrast in multiple planes. COMPARISON: CT - HEAD W/O CONTRAST 2017-07-24 17:15 FINDINGS: Brain: There is no significant white matter disease. No cerebral edema. There is no restricted diffusion within the brain to suggest acute ischemic change. Within the superior right parafalcine region, there is a 1.4 x 1.0 cm extra-axial focus of magnetic susceptibility, consistent with the calcification visualized on the prior CT. This is consistent with a prominent dural calcification or calcified meningioma. Midline shift: No midline shift. Ventricles: No ventriculomegaly. Bones/joints: No acute abnormality. Sinuses: Small mucous retention cysts or polyps are visualized within the right maxillary sinus and a few left ethmoid air cells. No acute sinusitis. Mastoid air cells: No mastoid effusion. Orbits: No acute abnormality, as visualized. Vertebral arteries: A dominant left vertebral artery is visualized. IMPRESSION: 1. No acute intracranial abnormality. 2. Within the superior right parafalcine region, there is a 1.4 x 1.0 cm extra-axial focus of magnetic susceptibility, consistent with the calcification visualized on the prior CT. This is consistent with a prominent dural calcification or calcified meningioma. 3. Paranasal sinus disease is noted above.
--- NOTE | 2017-07-24 23:11 | HP ---
HISTORY OF PRESENT ILLNESS: She was just discharged this morning after being in the hospital for a chest pain with positive troponins and she went home this morning after cardiac cath that explained elevated troponins thinking that might be cardiomyopathy. She was on anticoagulants when she came home and she had vaginal bleeding. She also took a hot shower with her mother present and she had a syncopal episode while taking the shower. The mother caught her and let her down when she woke up, she did not hurt herself or fell on the floor. She does have a history of an unremarkable cardiac cath and echocardiography in the past few days. Positive urinary tract infection, on nitrofurantoin. She is having for 2 weeks. She is having still a discharge. She had a lot of blood when she came home. She is off the anticoagulants now. No shortness of breath or chest pain. No headache. Just said she felt like she blacked out while taking the shower. She did eat. Her last hemoglobin was 10.5; this morning, that was 10.2. She has cardiomyopathy. She had positive troponins. She has UTI. She has a 2-1/2-week-old. SOCIAL HISTORY: Never smoked. No alcohol. No drugs. ALLERGIES: TO PENICILLIN. MEDICATIONS: She was only taking nitrofurantoin. REVIEW OF SYSTEMS: She is fatigued, a little weak. No acute vision changes or hearing changes or shortness of breath or cough. She has syncope. No chest pain or palpitations. No edema. No calf pain or dyspnea on exertion. No nausea, vomiting, constipation, or diarrhea. There is vaginal bleeding. She is 2 weeks . Skin has no issues that she knows of. No headache, no dizziness, or focal weakness. She is calm. No anxiety or depression. PHYSICAL EXAMINATION: VITAL SIGNS: She has a 98.8 temperature, 65 pulse, 18 respiratory rate, 118/48 blood pressure, 97% O2 sat. GENERAL: She is well appearing, nontoxic, comfortable at this time, lying down. Positive for alert and oriented x3. HEENT: Head is atraumatic and normocephalic. Extraocular muscles intact. Pupils are equal and reactive to light. Throat is moist. NECK: Supple. HEART: Regular rate. Normal S1, S2. LUNGS: Clear to auscultation bilaterally. No wheezes, rhonchi, or rales. ABDOMEN: Soft, nontender. Positive bowel signs. No guarding, rebound, or CVA tenderness. EXTREMITIES: No edema of the legs. She moves four extremities. NEUROLOGICAL: GCS of 15. Cranial nerves II through XII grossly intact. SKIN: Warm and dry. Alert and oriented x3. LABORATORY DATA: She had lab tests and MRI of the brain, which showed normal marlow and white matter differentiation, unremarkable. No suspicious extra-axial fluid collections, unremarkable. Normal-appearing brain by standard CT criteria. Recommend MRI. She had a 5.3 white count, 10.2 hemoglobin, 30.4 hematocrit with 266 platelets. She had a vaginal bleeding at home and this morning the hemoglobin was 10.5. She has a 139 sodium, potassium 4, BUN 12, creatinine 0.7, GFR is greater than 60, sugar is 100, calcium is 9.7. Total bili is 0.4, AST is 94, ALT is 43, alk phos 86, total protein 7.3, albumin is 4, and globulin is 2.3. EKG was normal sinus rhythm. Chest x-ray showed no active disease. She is going to have a consult with Neurology and Cardiology. She is going to get MRI of the brain. She should be on IV fluids of iron and nitrofurantoin. We will check her labs tomorrow and give her oxygen and physical therapy and her diet was doing very well. Mega Jaimes DO
[2017-07-25 06:56] LABS: HEMOGLOBIN 9.5 g/dL (12.0-16.0); MEAN CELL VOLUME 92.5 fl (80.0-105.0); MEAN CORPUSCULAR HEMOGLOBIN 30.8 pg (25.0-35.0); MEAN CORPUSCULAR HGB CONC 33.3 g/dl (31.0-37.0); MEAN PLATELET VOLUME 9.4 fl (7.0-11.0); RBC 3.08 10^6/uL (3.5-6.1); RED CELL DISTRIBUTION WIDTH 11.9 % (11.5-14.5); WHITE BLOOD COUNT 5.2 10^3/ul (4.5-11.0)
[2017-07-25 06:58] LABS: ALB/GLOB RATIO 1.3 (1.1-1.8); ALBUMIN 3.7 g/dL (3.0-4.8); ALT/SGPT 43 U/L (7-56); AST/SGOT 90 U/L (14-36); BLOOD UREA NITROGEN 10 mg/dL (7-21); CALCIUM 9.1 mg/dL (8.4-10.5); GFR AFRICAN-AMERICAN > 60; GFR NON-AFRICAN AMERICAN > 60
--- NOTE | 2017-07-25 07:32 | CARD ---
APPROVED REPORT EKG Measurement Heart [id number] IN [id number] <Conclusion> Normal sinus rhythm Normal ECG
--- NOTE | 2017-07-25 11:17 | CON ---
DATE: 07/25/2017 NEUROLOGY CONSULT CHIEF COMPLAINT: Syncope. HISTORY OF PRESENT ILLNESS: This is a 21-year-old woman who was recently at [facility] status post , status post cardiac cath after having chest pain, positive troponins and it was possibly that she had a questionable cardiomyopathy. She went home and she had taken a hot shower with mother present and she noticed that she was having vaginal bleeding and and had passed out while taking the shower. The mother caught her and let her down and she did not hit her head. She had a history of unremarkable cardiac cath and echocardiogram a few days ago. She has a positive urinary tract infection, she is on nitrofurantoin for antibiotics. She is off anticoagulation for now. Currently, no focal weakness or paresthesias. She has a history of migraine headaches as a child, but currently no headaches at this time. She denies any seizure history or any febrile seizures or meningitis. She had a CAT scan of the head, which showed an incidental superior 1.4 cm x 1 cm calcification consistent with possible calcified meningioma, which is unrelated to her presenting complaint. No focal weakness seen on the extremities. SOCIAL HISTORY: No illicit drug use, smoking or EtOH abuse. ALLERGIES: PENICILLIN. HOME MEDICATIONS: Reviewed by nurse reconciliation sheet. REVIEW OF SYSTEMS: Fourteen-point review of systems is negative except for the HPI. PHYSICAL EXAMINATION: VITAL SIGNS: Temperature 98.8, pulse rate is 65, respiratory rate of 18, oxygen saturation 97% on room air, blood pressure 63154. GENERAL: Patient is sitting up in bed, in no acute distress. HEENT: Head is atraumatic, normocephalic. PERRLA. Extraocular muscles intact. NECK: Supple. No JVD. No adenopathy noted. LUNGS: Clear to auscultation. No adventitious sounds. HEART: S1, S2. Normal rate and rhythm. No murmurs, rubs or gallops. ABDOMEN: Soft, nontender, nondistended. Bowel sounds are present. EXTREMITIES: No clubbing, no cyanosis. Peripheral pulses are 2+ felt bilaterally. NEUROLOGIC: Patient is alert, oriented to person, place, month and year. Speech is fluent without any errors. Cranial nerves II through XII intact. Motor exam: Moves all extremities equally. Toes downgoing bilaterally. Sensory: Light touch, pinprick, proprioception, vibration intact. DTRs are 2+ throughout. Coordination: [id number] intact. No dysmetria noted. Gait is deferred for now. LABORATORY DATA: Hemoglobin 9.5, hematocrit 28.5. Sodium 140, potassium 3.8, chloride 104, carbon dioxide 25, BUN of 10, creatinine 0.6, random glucose of 88. ASSESSMENT AND PLAN: This is a 21-year-old woman status post , had some chest pain, positive troponins recently, status post cardiac cath, could be possible to questionable cardiomyopathy. Had a syncopal episode at home, the syncopal episode was most likely vasovagal in nature, likely from dehydration and vaginal bleeding from possible anemia. At this time, she has no focal neurological deficits. RECOMMENDATIONS: 1. Adequate hydration throughout the day. 2. Follow up with her MAINTENANCE PIPEFITTER in one to two weeks. 3. Continue with nitrofurantoin for underlying urinary tract infection and she is clinically stable for discharge. Thank you for this consult. Ty Randolph MD
[2017-07-25 11:52] VITALS: O2SAT 99
[2017-07-25 12:15] VITALS: BP 112/68; PULSE 72; RESP 17; TEMP 99.1
--- NOTE | 2017-07-25 14:38 | CON ---
DATE: 07/25/2017 HISTORY OF PRESENT ILLNESS: The patient is a 21-year-old woman who was just discharged after an episode of chest pain two weeks after delivering a baby. Her coronary arteries are normal. Her overall left ventricular function is preserved. While taking a shower, she has some vaginal bleeding, which made her feel dizzy and passed out. No chest pain noted. REVIEW OF SYSTEMS: All negative. PHYSICAL EXAMINATION: VITAL SIGNS: Blood pressure 104/63, the heart rate in the 60s. NECK: Negative JVD. LUNGS: Without rales. HEART: Reveals S1, S2. EXTREMITIES: Without edema. EKG is unremarkable. Hemoglobin is 9.5. Chemistries, BUN and creatinine are unremarkable. IMPRESSION: 1. Vasovagal syncope. 2. Dehydration. 3. Anemia. 4. . 5. Normal coronary arteries. PLAN: Given these findings, I have discussed this with the patient in detail. There are no neurologic nor cardiac causes that can explain her syncope. I have advised to maintain good hydration and start iron for her anemia. Followup instructions have been given to the patient in detail. Delfin Morales MD
--- NOTE | 2017-07-25 16:06 | DS ---
CHIEF COMPLAINT: Text. HISTORY OF PRESENT ILLNESS: Hoping to do a discharge today on Maria Guadalupe Norris. She came in with syncope yesterday. She is status post 3 days here for a chest pain with positive troponins and a negative cardiac cath with possibility of a cardiomyopathy. She is currently on Feosol, Macrobid for UTI and IV fluids. She slept well. She is alert. She is comfortable. She did go to the bathroom and did not have any dizziness or feel faint. PHYSICAL EXAMINATION: VITAL SIGNS: She has a 98.1 temp, 63 pulse, 104/63 blood pressure, 16 respiratory rate, 97% O2 sat on room air. HEENT: Head is atraumatic, normocephalic. HEART: Regular rate. LUNGS: Clear to auscultation. ABDOMEN: Soft. Positive bowel sounds. EXTREMITIES: No edema. LABORATORY DATA: She has a 5.2 white count, hemoglobin 9.5, could be from dilutional from the IV fluids, 28.5 hematocrit and 278 platelets. 140 sodium, potassium 3.8, BUN 10, creatinine 0.6, GFR is greater than 60, sugar is 88, calcium is 9.1, total bili is 0.6, AST is 90, ALT is 43, alk phos 73, total protein 6.6, albumin is 3.7. She had the MRI of the brain, which showed no acute intracranial abnormality. Within the superior right parafalcine region, there was a 1.4 x 1 cm extra-axial focus of magnetic susceptibility consistent with a calcification visualized on the prior CT scan. This is consistent with a prominent dural calcification are calcified meningioma. Paranasal sinus disease is also noted. ASSESSMENT AND PLAN: I am waiting for Neurology to see her and Cardiology to see her. If everything works out well, I will try and discharge her this afternoon. She is eating well. She tells me she is feeling better. Hopefully, we can discharge here today. She is here for syncope. Mega Jaimes DO
== END 2017-07-25 12:40 | disposition home or self-care (01) ==
LOC: ED 14:05 → ERH 17:52 → 3RSO 21:49
PROVIDERS: ADMIT Family Medicine; ATTEND Family Medicine
DX: R55 Syncope and collapse (principal); O90.3 Peripartum cardiomyopathy; O90.81 Anemia of the puerperium; O86.20 Urinary tract infection following delivery, unspecified; E86.0 Dehydration
CPT/HCPCS: 36415; 70450; 70551; 71045; 80053; 81025; 85025; 85027; 93005; 96360; 99285; G0378; J7030; J7040

== ENCOUNTER 2017-08-28 01:08 | Emergency (ER) | payer OTHER ==
[2017-08-28 01:08] VITALS: BMI 21.4
[2017-08-28 01:22] VITALS: O2SAT 100
--- NOTE | 2017-08-28 01:34 | ED PDOC ---
Arrival/HPI - General Chief Complaint: Shortness Of Breath Time Seen by Provider: 08/28/17 01:33 Historian: Patient - History of Present Illness Narrative History of Present Illness (Text): 08/28/17 01:33 Maria Guadalupe Norris is a 21 year old female, whose past medical history includes post- cardiomyopathy, who presents to the Emergency department complaining of chest pain. Patient states she was trying to put her to sleep when she develop left-sided chest pain with associated shortness of breath. Patient recently underwent a cardiac catheterization on 07/23/2017 which was grossly normal. Patient states she does not take oral contraceptives. Patient denies any fever, chills, nausea, vomiting, back pain, neck pain, headache, dizziness, or any other complaints. Symptom Onset: Gradual Symptom Course: Unchanged Activities at Onset: Light Context: Home Past Medical History - Provider Review Nursing Documentation Reviewed: Yes - Infectious Disease Hx of Infectious Diseases: None - Cardiac Hx Cardiac Disorders: Yes (Post pardum cardiomyopathy) - Pulmonary Hx Respiratory Disorders: No - Neurological Hx Neurological Disorder: No - HEENT Hx HEENT Disorder: No - Endocrine/Metabolic Hx Endocrine Disorders: No - Hematological/Oncological Hx Blood Disorders: No - Integumentary Hx Dermatological Disorder: No - Musculoskeletal/Rheumatological Hx Falls: No - Gastrointestinal Hx Gastrointestinal Disorders: No - Genitourinary/Gynecological Hx Genitourinary Disorders: No - Psychiatric Hx Psychophysiologic Disorder: No Hx Substance Use: No - Surgical History Hx Cardiac Catheterization: Yes (07/23/17) - Anesthesia Hx Anesthesia: No Family/Social History - Physician Review Nursing Documentation Reviewed: Yes Family/Social History: Unknown Family HX Smoking Status: Never Smoked Hx Alcohol Use: No Hx Substance Use: No Allergies/Home Meds Allergies/Adverse Reactions: Allergies Penicillins Allergy (Verified 08/28/17 01:19) ANAPHYLAXIS Home Medications: Home Meds Medication Instructions Recorded Confirmed No Known Home Med 08/28/17 08/28/17 Review of Systems - Physician Review All systems were reviewed & negative as marked: Yes - Review of Systems Constitutional: Normal. absent: Fevers Eyes: Normal ENT: Normal Respiratory: SOB. absent: Cough Cardiovascular: Chest Pain Gastrointestinal: Normal. absent: Abdominal Pain, Diarrhea, Nausea, Vomiting Genitourinary Female: Normal. absent: Dysuria, Frequency, Hematuria, Urine Output Changes Musculoskeletal: Normal. absent: Back Pain, Neck Pain Skin: Normal. absent: Rash Neurological: Normal. absent: Headache, Dizziness Endocrine: Normal Hemo/Lymphatic: Normal Psychiatric: Normal Physical Exam Vital Signs Reviewed: Yes Vital Signs Pulse Resp BP Pulse Ox 08/28/17 04:40 73 18 104/61 100 08/28/17 01:30 17 100 08/28/17 01:21 63 17 120/67 100 Temperature: Afebrile Blood Pressure: Normal Pulse: Regular Respiratory Rate: Normal Appearance: Positive for: Well-Appearing, Non-Toxic, Comfortable Pain Distress: None Mental Status: Positive for: Alert and Oriented X 3 - Systems Exam Head: Present: Atraumatic, Normocephalic Pupils: Present: PERRL Extroacular Muscles: Present: EOMI Conjunctiva: Present: Normal Mouth: Present: Moist Mucous Membranes Neck: Present: Normal Range of Motion. No: Meningeal Signs, MIDLINE TENDERNESS , Paraspinal Tenderness Respiratory/Chest: Present: Clear to Auscultation, Good Air Exchange. No: Respiratory Distress, Accessory Muscle Use Cardiovascular: Present: Regular Rate and Rhythm, Normal S1, S2. No: Murmurs Abdomen: No: Tenderness, Distention, Peritoneal Signs Back: Present: Normal Inspection Upper Extremity: Present: Normal Inspection. No: Cyanosis, Edema Lower Extremity: Present: Normal Inspection. No: Edema Neurological: Present: GCS=15, CN II-XII Intact, Speech Normal Skin: Present: Warm, Dry, Normal Color. No: Rashes Psychiatric: Present: Alert, Oriented x 3, Normal Insight, Normal Concentration Medical Decision Making ED Course and Treatment: 08/28/17 01:33 Impression: 21 year old female complaining of left-sided chest pain and shortness of breath tonight. Plan: -- EKG -- Chest X-ray -- Labs, cardiac enzymes, BNP, D-dimer -- Reassess and disposition Prior Visits: Notes and results from previous visits were reviewed. On 07/24/2017, pt was seen in the Emergency department s/p syncopal episode. Pt was admitted to the hospital for further evaluation. Progress Notes: Reviewed EKG, NSR at [address]-segment elevations or depressions, no T-wave inversions, normal intervals. 08/28/17 03:49 Chest X-ray reviewed, shows no acute processes. 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 Case discussed with Dr. Purvi Thakkar, who is aware and agrees with plan. Accepts pt in to hospitalist service. 08/28/17 04:47 Discussed results and plan with pt and family, pt was offered hospital observation for further evaluation of symptoms. Pt states she does not wish to stay. Pt was advised the risks of leaving against medical advice but continues to want to go leave. Pt will sign out against medical advice. The patient is choosing to leave against medical advice. I have personally explained to the patient that choosing to do so may result in permanent bodily harm or . I have discussed at great length that without further evaluation and monitoring there may be unforeseen circumstances and/or deterioration causing permanent bodily harm or as a result of their choice. The patient is alert, oriented, and shows the mental capacity to make clear decisions regarding the patients health care at this time. The patient continues to wish to leave against medical advice. In light of the patients decision to leave against medical advice, patient is aware of the importance to following up as instructed. The patient has been advised that they should return to the emergency room immediately if they change their mind at any time, or if their condition begins to change or worsen in any way. - Lab Interpretations Lab Results: 08/28/17 02:10 08/28/17 02:10 Lab Results 08/28/17 02:10: WBC 5.9, RBC 3.84, Hgb 11.8 L D, Hct 34.9 L, MCV 90.9, MCH 30.7 , MCHC 33.8, RDW 11.5, Plt Count 300, MPV 9.8 08/28/17 02:10: Sodium 144, Potassium 4.0, Chloride 105, Carbon Dioxide 26, Anion Gap 17, BUN 16, Creatinine 0.6 L, Est GFR ( Amer) > 60, Est GFR ( Non-Af Amer) > 60, Random Glucose 97, Calcium 9.7, Total Bilirubin 0.2, AST 81 H , ALT 108 H, Alkaline Phosphatase 60, Lactate Dehydrogenase 446, Total Creatine Kinase 59, Troponin I 0.03 D, NT-Pro-B Natriuret Pep 80.2, Total Protein 7.8, Albumin 4.6, Globulin 3.2, Albumin/Globulin Ratio 1.5 08/28/17 02:10: PT 11.5, INR 1.01, APTT 33.4, D-Dimer, Quantitative < 200 I have reviewed the lab results: Yes - RAD Interpretation Radiology Orders: 08/28/17 01:37 CHEST PORTABLE [RAD] Stat Security Assurance Analyst: ED Physician - EKG Interpretation Interpreted by ED Physician: Yes Type: 12 lead EKG - Scribe Statement The provider has reviewed the documentation as recorded by the Albertoibbruce Brian Provider Scribe Attestation: All medical record entries made by the Scribe were at my direction and personally dictated by me. I have reviewed the chart and agree that the record accurately reflects my personal performance of the history, physical exam, medical decision making, and the department course for this patient. I have also personally directed, reviewed, and agree with the discharge instructions and disposition. Disposition/Present on Arrival - Present on Arrival Any Indicators Present on Arrival: No History of DVT/PE: No History of Uncontrolled Diabetes: No Urinary Catheter: No History of Decub. Ulcer: No History Surgical Site Infection Following: None - Disposition Have Diagnosis and Disposition been Completed?: Yes Diagnosis: Chest pain Disposition: AGAINST MEDICAL ADVICE Disposition Time: 04:49 Condition: STABLE Discharge Instructions (ExitCare): Chest Pain (ED) Forms: [facility] [employer] (Al[place]ian)
[2017-08-28 02:25] LABS: MEAN CELL VOLUME 90.9 fl (80.0-105.0); MEAN CORPUSCULAR HEMOGLOBIN 30.7 pg (25.0-35.0); MEAN CORPUSCULAR HGB CONC 33.8 g/dl (31.0-37.0); MEAN PLATELET VOLUME 9.8 fl (7.0-11.0); RBC 3.84 10^6/uL (3.5-6.1); RED CELL DISTRIBUTION WIDTH 11.5 % (11.5-14.5); WHITE BLOOD COUNT 5.9 10^3/ul (4.5-11.0)
[2017-08-28 02:34] LABS: HEMOGLOBIN 11.8 g/dL (12.0-16.0)
[2017-08-28 02:43] LABS: ALB/GLOB RATIO 1.5 (1.1-1.8); ALBUMIN 4.6 g/dL (3.0-4.8); ALT/SGPT 108 U/L (7-56); AST/SGOT 81 U/L (14-36); BLOOD UREA NITROGEN 16 mg/dL (7-21); CALCIUM 9.7 mg/dL (8.4-10.5); GFR AFRICAN-AMERICAN > 60; GFR NON-AFRICAN AMERICAN > 60
[2017-08-28 02:53] LABS: B-TYPE NATRIURETIC PEPTIDE 80.2 pg/mL (0-450); TROPONIN I 0.03 ng/mL
[2017-08-28 02:56] LABS: D DIMER < 200 ng/mL (0-243); INR 1.01 (0.93-1.08); PARTIAL THROMBOPLASTIN TIME 33.4 Seconds (25.1-36.5); PROTHROMBIN TIME 11.5 SECONDS (9.4-12.5)
[2017-08-28 05:19] VITALS: BP 105/68; PULSE 72; RESP 17; TEMP 98.2
--- NOTE | 2017-08-28 07:47 | RAD ---
HISTORY: chest pain COMPARISON: 07/24/2017 FINDINGS: LUNGS: No active pulmonary disease. PLEURA: No significant pleural effusion identified, no pneumothorax apparent. CARDIOVASCULAR: Normal. OSSEOUS STRUCTURES: No significant abnormalities. VISUALIZED UPPER ABDOMEN: Normal. OTHER FINDINGS: None. IMPRESSION: No active disease.
--- NOTE | 2017-08-28 13:25 | CARD ---
APPROVED REPORT EKG Measurement Heart [id number] W[place] [id number] <Conclusion> Normal sinus rhythm Normal ECG
== END 2017-08-28 05:19 | disposition left against medical advice (07) ==
LOC: ED 01:08
DX: R07.9 Chest pain, unspecified (principal); O90.3 Peripartum cardiomyopathy

== ENCOUNTER 2018-01-14 13:24 | Emergency (ER) | payer MEDICAID, OTHER ==
[2018-01-14 13:37] VITALS: BMI 19.0
[2018-01-14 13:54] VITALS: RESP 18; TEMP 98.8
--- NOTE | 2018-01-14 14:49 | ED PDOC ---
Arrival/HPI - General Chief Complaint: Chest Pain Time Seen by Provider: 01/14/18 13:59 Historian: Patient - History of Present Illness Narrative History of Present Illness (Text): 01/14/18 14:22 A 22 year old female, whose past medical history includes post- cardiomyopathy, presents to the emergency department complaining of intermittent chest pressure with associated shortness of breath for 3 days. Patient reports today the pain has been constant. Patient denies any chest pain, abdominal pain, dizziness, headache, bilateral leg swelling, or any other complaints at this time. No PMD Past Medical History - Provider Review Nursing Documentation Reviewed: Yes - Infectious Disease Hx of Infectious Diseases: None - Cardiac Hx Cardiac Disorders: Yes (Post cardiomyopathy) Other/Comment: s/p cardiac cath - Pulmonary Hx Respiratory Disorders: No - Neurological Hx Neurological Disorder: Yes Other/Comment: Meningioma - HEENT Hx HEENT Disorder: No - Endocrine/Metabolic Hx Endocrine Disorders: No - Hematological/Oncological Hx Blood Disorders: No - Integumentary Hx Dermatological Disorder: No - Musculoskeletal/Rheumatological Hx Falls: No - Gastrointestinal Hx Gastrointestinal Disorders: No - Genitourinary/Gynecological Hx Genitourinary Disorders: No - Psychiatric Hx Psychophysiologic Disorder: No Hx Substance Use: No - Surgical History Hx Cardiac Catheterization: Yes (07/23/17) - Anesthesia Hx Anesthesia: Yes Hx Anesthesia Reactions: No Hx Malignant Hyperthermia: No Family/Social History - Physician Review Nursing Documentation Reviewed: Yes Family/Social History: No Known Family HX Smoking Status: Never Smoked Hx Alcohol Use: No Hx Substance Use: No Allergies/Home Meds Allergies/Adverse Reactions: Allergies Penicillins Allergy (Verified 08/28/17 01:19) ANAPHYLAXIS Home Medications: Home Meds Medication Instructions Recorded Confirmed No Known Home Med 08/28/17 01/14/18 Review of Systems - Physician Review All systems were reviewed & negative as marked: Yes - Review of Systems Respiratory: SOB Cardiovascular: absent: Chest Pain (experiences chest pressure) Gastrointestinal: absent: Abdominal Pain Musculoskeletal: absent: Other (no bilateral leg swelling) Neurological: absent: Headache, Dizziness Physical Exam Vital Signs Reviewed: Yes Vital Signs Temp Pulse Resp BP Pulse Ox 01/14/18 13:45 98.8 F 61 18 102/67 100 Temperature: Afebrile Blood Pressure: Normal Pulse: Regular Respiratory Rate: Normal Appearance: Positive for: Well-Appearing, Non-Toxic, Comfortable Pain Distress: None Mental Status: Positive for: Alert and Oriented X 3 - Systems Exam Head: Present: Atraumatic, Normocephalic Pupils: Present: PERRL Extroacular Muscles: Present: EOMI Conjunctiva: Present: Normal Mouth: Present: Moist Mucous Membranes Neck: Present: Normal Range of Motion Respiratory/Chest: Present: Clear to Auscultation, Good Air Exchange. No: Respiratory Distress, Accessory Muscle Use Cardiovascular: Present: Regular Rate and Rhythm, Normal S1, S2. No: Murmurs Abdomen: No: Tenderness, Distention, Peritoneal Signs Back: Present: Normal Inspection Upper Extremity: Present: Normal Inspection. No: Cyanosis, Edema Lower Extremity: Present: Normal Inspection. No: Edema Neurological: Present: GCS=15, CN II-XII Intact, Speech Normal Skin: Present: Warm, Dry, Normal Color. No: Rashes Psychiatric: Present: Alert, Oriented x 3, Normal Insight, Normal Concentration Medical Decision Making ED Course and Treatment: 01/14/18 14:26 Impression: 22 year old female with chest pressure with associated shortness of breath. No acute findings on physical examination. Plan: -- Chest X-ray --Duonebs -- Labs -- UA -- POC Urine -- Reassess and disposition Prior Visits: Notes and results from previous visits were reviewed. Patient was last seen in the emergency department on 08/28/2017 for chest pain. Patient left against medical advice. Progress Notes: 01/14/18 16:58 Labs reviewed with no leukocytosis, troponin or elevation in d-dimer. Patient updated on findings and will follow up with Dr. Morales. - Lab Interpretations I have reviewed the lab results: Yes - RAD Interpretation Narrative RAD Interpretations (Text): 01/14/18 17:11 Chest X-ray: Dictator : Luca Goss MD FINDINGS: LUNGS: No active pulmonary disease. PLEURA: No significant pleural effusion identified, no pneumothorax apparent. CARDIOVASCULAR: Normal. OSSEOUS STRUCTURES: No significant abnormalities. VISUALIZED UPPER ABDOMEN: Normal. OTHER FINDINGS: None. IMPRESSION: No active disease. Radiology Orders: 01/14/18 14:27 CHEST PORTABLE [RAD] Stat Podiatric Surgeon: Radiologist - Scribe Statement The provider has reviewed the documentation as recorded by the Andrade Sanderson Provider Scribe Attestation: All medical record entries made by the Scribe were at my direction and personally dictated by me. I have reviewed the chart and agree that the record accurately reflects my personal performance of the history, physical exam, medical decision making, and the department course for this patient. I have also personally directed, reviewed, and agree with the discharge instructions and disposition. Disposition/Present on Arrival - Present on Arrival Any Indicators Present on Arrival: No History of DVT/PE: No History of Uncontrolled Diabetes: No Urinary Catheter: No History of Decub. Ulcer: No History Surgical Site Infection Following: None - Disposition Have Diagnosis and Disposition been Completed?: Yes Diagnosis: Costochondral chest pain Disposition: HOME/ ROUTINE Disposition Time: 17:04 Patient Plan: Discharge Patient Problems: Current Active Problems Problem Status Onset Costochondral chest pain Acute Discharge Instructions (ExitCare): Chest Pain That Is Not Caused by the Heart (DC), Chest Pain (ED) Referrals: Delfin Morales MD [Staff Provider] - Follow up with primary Ayanna Jefferson MD [Medical Doctor] - Follow up with primary [facility] [place] - Follow up with primary Forms: WORK NOTE
[2018-01-14 15:05] LABS: BASO # 0.01 K/mm3 (0.0-2.0); BASO % 0.2 % (0.0-3.0); EOS # 0.1 (0.0-0.7); EOS % 1.9 % (1.5-5.0); GRAN # 3.17 (1.4-6.5); GRAN % 48.8 % (50.0-68.0); HEMOGLOBIN 13.1 g/dL (12.0-16.0); LYMPH # 2.9 (1.2-3.4); MEAN CELL VOLUME 89.9 fl (80.0-105.0); MEAN CORPUSCULAR HEMOGLOBIN 30.7 pg (25.0-35.0); MEAN CORPUSCULAR HGB CONC 34.1 g/dl (31.0-37.0); MEAN PLATELET VOLUME 9.8 fl (7.0-11.0); MONO # 0.3 (0.1-0.6); MONO % 5.1 % (1.0-6.0); RBC 4.27 10^6/uL (3.5-6.1); RED CELL DISTRIBUTION WIDTH 12.4 % (11.5-14.5); WHITE BLOOD COUNT 6.5 10^3/ul (4.5-11.0)
[2018-01-14 15:18] LABS: ALB/GLOB RATIO 1.4 (1.1-1.8); ALBUMIN 5.7 g/dL (3.0-4.8); ALT/SGPT 23 U/L (7-56); AST/SGOT 34 U/L (14-36); BLOOD UREA NITROGEN 16 mg/dL (7-21); CALCIUM 10.1 mg/dL (8.4-10.5); GFR NON-AFRICAN AMERICAN > 60
[2018-01-14 15:35] LABS: B-TYPE NATRIURETIC PEPTIDE 83.7 pg/mL (0-450); TROPONIN I < 0.01 ng/mL
[2018-01-14 15:40] LABS: URINE BILIRUBIN NEGATIVE (NEGATIVE); URINE BLOOD NEGATIVE (NEGATIVE); URINE GLUCOSE (UA) NEGATIVE (NEGATIVE); URINE LEUKOCYTE ESTERASE NEGATIVE Leu/uL (NEGATIVE); URINE PROTEIN NEGATIVE mg/dL (<30 mg/dL); URINE UROBILINOGEN 0.2 E.U./dL (<1 E.U./dL)
[2018-01-14 15:46] LABS: URINE APPEARANCE CLEAR (CLEAR); URINE COLOR YELLOW (YELLOW)
[2018-01-14] MEDS ORDERED: Albuterol-Ipratrop 3 mg / 0.5 (3 ml) UD IH STA (16:33)
--- NOTE | 2018-01-14 16:44 | RAD ---
Date of service: 01/14/2018 HISTORY: chest pressure w/ h/o cardiomyopathu COMPARISON: 08/28/2017 FINDINGS: LUNGS: No active pulmonary disease. PLEURA: No significant pleural effusion identified, no pneumothorax apparent. CARDIOVASCULAR: Normal. OSSEOUS STRUCTURES: No significant abnormalities. VISUALIZED UPPER ABDOMEN: Normal. OTHER FINDINGS: None. IMPRESSION: No active disease.
[2018-01-14 17:29] VITALS: BP 106/62; PULSE 73; O2SAT 99
[2018-01-14 18:04] LABS: BARBITURATES, UR NEGATIVE (NEGATIVE); BENZODIAZEPINES, UR NEGATIVE (NEGATIVE); OPIATES, UR NEGATIVE (NEGATIVE); PHENCYCLIDINE, UR NEGATIVE (NEGATIVE)
--- NOTE | 2018-01-15 16:11 | CARD ---
APPROVED REPORT Date of service: 01/14/2018 EKG Measurement Heart [id number] <Conclusion> Normal sinus rhythm with sinus arrhythmia Low voltage QRS Borderline ECG
== END 2018-01-14 17:30 | disposition home or self-care (01) ==
LOC: ED 13:24
DX: R07.1 Chest pain on breathing (principal); I42.9 Cardiomyopathy, unspecified
CPT/HCPCS: 71045; 80053; 81003; 83735; 83880; 84484; 85025; 85378; 93005; 99283; G0480

== ENCOUNTER 2018-01-29 11:11 | Emergency (ER) | payer MEDICAID ==
[2018-01-29 11:32] VITALS: BMI 19.1
[2018-01-29 11:34] VITALS: TEMP 99
[2018-01-29] MEDS ORDERED: Sodium Chloride 0.9% 1,000 ML IV STA (11:49)
[2018-01-29] MEDS ORDERED: DiphenhydrAMINE 50 mg/ml Inj IVP STA (11:49)
--- NOTE | 2018-01-29 11:58 | ED PDOC ---
Arrival/HPI - General Historian: Patient - History of Present Illness Narrative History of Present Illness (Text): 01/29/18 11:51 Patient is a 22 year old female with a past medical history of cardiomyopathy and calcified meningioma is presenting to the emergency room with a complaint of a headache. The headache started last night and has been slowly worsening. It is located in the front of her head and radiates backwards. It is throbbing in nature. She is nauseous but has not vomited. She complaints of associated photophobia but denies any eye pain or vision changes. Denies fevers, chills, diarrhea, constipation, chest pain, shortness of breath, focal weakness, numbness or tingling. Time/Duration: 24 hours Symptom Onset: Gradual Symptom Course: Worsening Quality: Throbbing <Howie Shine - Last Filed: 01/29/18 13:34> <Gustavo Dumont - Last Filed: 01/29/18 17:40> - General Chief Complaint: Headache Time Seen by Provider: 01/29/18 11:12 Past Medical History - Provider Review Nursing Documentation Reviewed: Yes - Infectious Disease Hx of Infectious Diseases: None - Cardiac Hx Cardiac Disorders: Yes (Post cardiomyopathy) Other/Comment: s/p cardiac cath - Pulmonary Hx Respiratory Disorders: No - Neurological Hx Neurological Disorder: Yes Other/Comment: Meningioma - HEENT Hx HEENT Disorder: No - Endocrine/Metabolic Hx Endocrine Disorders: No - Hematological/Oncological Hx Blood Disorders: No - Integumentary Hx Dermatological Disorder: No - Musculoskeletal/Rheumatological Hx Falls: No - Gastrointestinal Hx Gastrointestinal Disorders: No - Genitourinary/Gynecological Hx Genitourinary Disorders: No - Psychiatric Hx Psychophysiologic Disorder: No Hx Substance Use: No - Surgical History Hx Cardiac Catheterization: Yes (07/23/17) - Anesthesia Hx Anesthesia: Yes Hx Anesthesia Reactions: No Hx Malignant Hyperthermia: No <Howie Shine - Last Filed: 01/29/18 13:34> Family/Social History - Physician Review Nursing Documentation Reviewed: Yes Family/Social History: Unknown Family HX Smoking Status: Never Smoked Hx Alcohol Use: No Hx Substance Use: No <Howie Shine - Last Filed: 01/29/18 13:34> Allergies/Home Meds <Howie Shine - Last Filed: 01/29/18 13:34> <Gustavo Dumont - Last Filed: 01/29/18 17:40> Allergies/Adverse Reactions: Allergies Penicillins Allergy (Verified 01/29/18 11:32) ANAPHYLAXIS Review of Systems - Physician Review All systems were reviewed & negative as marked: Yes - Review of Systems Constitutional: Normal. absent: Fatigue, Fevers Eyes: Photophobia. absent: Vision Changes ENT: Normal. absent: Sore Throat, Rhinorrhea Respiratory: Normal. absent: SOB, Wheezing Cardiovascular: Normal. absent: Chest Pain, Syncope Gastrointestinal: Normal. absent: Abdominal Pain, Constipation, Diarrhea, Nausea, Vomiting Musculoskeletal: Normal. absent: Neck Pain Skin: Normal. absent: Rash Neurological: Headache. absent: Focal Weakness Endocrine: Normal. absent: Diaphoresis Hemo/Lymphatic: Normal. absent: Adenopathy Psychiatric: Normal. absent: Anxiety <Howie Shine - Last Filed: 01/29/18 13:34> Physical Exam Vital Signs Reviewed: Yes Vital Signs Temp Pulse Resp BP Pulse Ox 01/29/18 11:36 99.0 F 18 99 01/29/18 11:33 99.0 F 96 H 18 109/74 98 Temperature: Afebrile Blood Pressure: Normal Pulse: Regular Respiratory Rate: Normal Appearance: Positive for: Non-Toxic, Uncomfortable Pain Distress: Moderate Mental Status: Positive for: Alert and Oriented X 3 - Systems Exam Head: Present: Atraumatic, Normocephalic Pupils: Present: PERRL Extroacular Muscles: Present: EOMI Conjunctiva: Present: Normal Mouth: Present: Moist Mucous Membranes Nose (External): Present: Atraumatic Nose (Internal): Present: No Active Bleeding Neck: Present: Normal Range of Motion. No: Meningeal Signs, Lymphadenopathy Respiratory/Chest: Present: Clear to Auscultation, Good Air Exchange. No: Respiratory Distress, Accessory Muscle Use Cardiovascular: Present: Regular Rate and Rhythm, Normal S1, S2. No: Murmurs Abdomen: No: Tenderness, Distention, Peritoneal Signs Back: Present: Normal Inspection Upper Extremity: Present: Normal Inspection, NORMAL PULSES, Other (5/5 strength b/l). No: Cyanosis, Edema Lower Extremity: Present: Normal Inspection, NORMAL PULSES, Other (5/5 strength b/l). No: Edema, CALF TENDERNESS Neurological: Present: GCS=15, CN II-XII Intact, Speech Normal, Motor Func Grossly Intact Skin: Present: Warm, Dry, Normal Color. No: Rashes Psychiatric: Present: Alert, Oriented x 3, Normal Insight, Normal Concentration <Howie Shine - Last Filed: 01/29/18 13:34> Vital Signs Temp Pulse Resp BP Pulse Ox 01/29/18 11:36 99.0 F 18 99 01/29/18 11:33 99.0 F 96 H 18 109/74 98 <Gustavo Dumont - Last Filed: 01/29/18 17:40> Medical Decision Making ED Course and Treatment: 01/29/18 12:01 Patient is a 22 year old female with a past medical history of cardiomyopathy and calcified meningioma is presenting to the emergency room with a complaint of a headache since last night. Patient never followed up with Neurologist after admission in July due to no insurance. No focal neuro deficits. Labs Reglan, Benadryl and 1L bolus of NS given Will re-assess 01/29/18 13:19 Patient still has headache but is feeling much better. Fluids are still running. Will complete treatment and re-assess. 01/29/18 13:34 Labs are unremarkable. Patient is feeling much better and would like to go home. Patient is to be discharged home with a prescription for Fioricet Re-evaluation Time: 13:19 Reassessment Condition: Re-examined, Improving,but remains with symptoms - Lab Interpretations I have reviewed the lab results: Yes - Medication Orders Current Medication Orders: Diphenhydramine HCl (Benadryl) 25 mg IVP STAT STA Stop: 01/29/18 11:50 Sodium Chloride (Sodium Chloride 0.9%) 1,000 mls @ 999 mls/hr IV .Q1H1M STA Stop: 01/29/18 12:49 Metoclopramide HCl (Reglan) 10 mg IVP STAT STA Stop: 01/29/18 11:50 <Howie Shine - Last Filed: 01/29/18 13:34> ED Course and Treatment: 01/29/18 12:58 22 year old female presents to the Emergency Department complaining of headache. In agreement with resident note, which includes further HPI details. Patient was seen and evaluated with resident, came up with plan and treatment together. 01/29/18 17:39 pt seen with resident perdomo, no thunderclap features, h/ o of calcifification vs mengigoma. neuro intact. labs neg. pain resolved. asking for dc. no indication for emergent imaging. - Lab Interpretations Lab Results: 01/29/18 12:10 01/29/18 12:10 Lab Results 01/29/18 12:10: Urine Color Yellow, Urine Appearance Clear, Urine pH 6.0, Ur Specific [place] 1.025, Urine Protein Negative, Urine Glucose (UA) Negative, Urine Ketones Negative, Urine Blood Negative, Urine Nitrate Negative, Urine Bilirubin Negative, Urine Urobilinogen 0.2, Ur Leukocyte Esterase Negative, Urine HCG, Qual Negative 01/29/18 12:10: Sodium 137, Potassium 4.5, Chloride 104, Carbon Dioxide 23, Anion Gap 15, BUN 13, Creatinine 0.5 L, Est GFR ( Amer) > 60, Est GFR (Non-Af Amer) > 60, Random Glucose 90, Calcium 9.5, Total Bilirubin 0.8, AST 28, ALT 26, Alkaline Phosphatase 71, Total Protein 8.3, Albumin 4.8, Globulin 3.4, Albumin/Globulin Ratio 1.4 01/29/18 12:10: PT 12.5, INR 1.09, APTT 34.3 01/29/18 12:10: WBC 5.4, RBC 4.08, Hgb 12.6, Hct 36.4, MCV 89.2, MCH 30.9, MCHC 34.6, RDW 12.0, Plt Count 282, MPV 9.7, Gran % 55.9, Lymph % (Auto) 33.7, [place] % (Auto) 9.1 H, Eos % (Auto) 0.9 L, Baso % (Auto) 0.4, Gran # 3.00, Lymph # (Auto) 1.8, [place] # (Auto) 0.5, Eos # (Auto) 0.1, Baso # (Auto) 0.02 - Medication Orders Current Medication Orders: Discontinued Medications Acetaminophen (Tylenol 325mg Tab) 975 mg PO STAT STA Stop: 01/29/18 11:52 Last Admin: 01/29/18 12:06 Dose: 975 mg Diphenhydramine HCl (Benadryl) 25 mg IVP STAT STA Stop: 01/29/18 11:50 Last Admin: 01/29/18 12:06 Dose: 25 mg IVP Administration Document 01/29/18 12:06 SF (Rec: 01/29/18 12:06 [id number] Charges for Administration # of IVP Administrations 1 Sodium Chloride (Sodium Chloride 0.9%) 1,000 mls @ 999 mls/hr IV .Q1H1M STA Stop: 01/29/18 12:49 Last Admin: 01/29/18 12:07 Dose: 999 mls/hr eMAR Start Stop Document 01/29/18 12:07 SF (Rec: 01/29/18 12:07 [id number]) Intravenous Solution Start Date 01/29/18 Start Time 12:07 End Date 01/29/18 End time 13:08 Total Infusion Time 61 Metoclopramide HCl (Reglan) 10 mg IVP STAT STA Stop: 01/29/18 11:50 Last Admin: 01/29/18 12:05 Dose: 10 mg IVP Administration Document 01/29/18 12:05 SF (Rec: 01/29/18 12:06 [id number] Charges for Administration # of IVP Administrations 1 <Gustavo Dumont - Last Filed: 01/29/18 17:40> - PA / [employer] / Resident Statement / has reviewed & agrees with the documentation as recorded. / has examined the patient and agrees with the treatment plan. - Scribe Statement The provider has reviewed the documentation as recorded by the Andrade smiley with [facility] All medical record entries made by the Albertoibbruce were at my direction and personally dictated by me. I have reviewed the chart and agree that the record accurately reflects my personal performance of the history, physical exam, medical decision making, and the department course for this patient. I have also personally directed, reviewed, and agree with the discharge instructions and disposition. <Gustavo Dumont - Last Filed: 01/29/18 17:40> Disposition/Present on Arrival - Present on Arrival Any Indicators Present on Arrival: No History of DVT/PE: No History of Uncontrolled Diabetes: No Urinary Catheter: No History of Decub. Ulcer: No History Surgical Site Infection Following: None - Disposition Have Diagnosis and Disposition been Completed?: Yes Disposition Time: 13:35 <Howie Shine - Last Filed: 01/29/18 13:34> <Gustavo Dumont - Last Filed: 01/29/18 17:40> - Disposition Diagnosis: Headache Disposition: HOME/ ROUTINE Condition: IMPROVED Discharge Instructions (ExitCare): Migraine Headache (DC) Additional Instructions: GABRIELLA HERNANDEZ, thank you for letting us take care of you today. Your provider was Gustavo Dumont DO and you were treated for a headache. The emergency medical care you received today was directed at your acute symptoms. If you were prescribed any medication, please fill it and take as directed. It may take mae ral days for your symptoms to resolve. Return to the Emergency Department if your symptoms worsen, do not improve, or if you have any other problems. Please contact your doctor or call one of the physicians/clinics you have been referred to that are listed on the Patient Visit Information form that is included in your discharge packet. Bring any paperwork you were given at discharge with you along with any medications you are taking to your follow up visit. Our treatment cannot replace ongoing medical care by a primary care provider outside of the emergency department. Thank you for allowing the [facility] team to be part of your care today. If you had an X-Ray or CT scan: A Radiologist will review the ED reading if any change in treatment is needed we will contact you. If you had a blood, urine, or wound culture: It will take several days for the results, if any change in treatment is needed we will contact you. If you had an STI test: It will take 48 hours for the results. Please call after 1 week if you have not heard back. Prescriptions: Acetaminophen/Butalbital/Caf [Fioricet] 1 tab PO Q6H PRN #20 tab PRN Reason: Headache Referrals: Cliff Nolasco MD [Staff Provider] - Follow up with primary Forms: [employer] ([place])
[2018-01-29 12:35] LABS: GRAN % 55.9 % (50.0-68.0); HEMOGLOBIN 12.6 g/dL (12.0-16.0); LYMPH % 33.7 % (22.0-35.0); MEAN CELL VOLUME 89.2 fl (80.0-105.0); MEAN CORPUSCULAR HEMOGLOBIN 30.9 pg (25.0-35.0); MEAN CORPUSCULAR HGB CONC 34.6 g/dl (31.0-37.0); MEAN PLATELET VOLUME 9.7 fl (7.0-11.0); MONO % 9.1 % (1.0-6.0); RBC 4.08 10^6/uL (3.5-6.1); WHITE BLOOD COUNT 5.4 10^3/ul (4.5-11.0)
[2018-01-29 12:36] LABS: BASO # 0.02 K/mm3 (0.0-2.0); BASO % 0.4 % (0.0-3.0); EOS # 0.1 (0.0-0.7); EOS % 0.9 % (1.5-5.0); LYMPH # 1.8 (1.2-3.4); MONO # 0.5 (0.1-0.6)
[2018-01-29 12:42] LABS: URINE BILIRUBIN NEGATIVE (NEGATIVE); URINE BLOOD NEGATIVE (NEGATIVE); URINE GLUCOSE (UA) NEGATIVE (NEGATIVE); URINE LEUKOCYTE ESTERASE NEGATIVE Leu/uL (NEGATIVE); URINE PROTEIN NEGATIVE mg/dL (<30 mg/dL); URINE UROBILINOGEN 0.2 E.U./dL (<1 E.U./dL)
[2018-01-29 12:45] LABS: URINE APPEARANCE CLEAR (CLEAR); URINE COLOR YELLOW (YELLOW)
[2018-01-29 12:47] LABS: HCG,QUALITATIVE URINE NEGATIVE (NEGATIVE)
[2018-01-29 12:50] LABS: INR 1.09; PARTIAL THROMBOPLASTIN TIME 34.3 Seconds (25.1-36.5); PROTHROMBIN TIME 12.5 SECONDS (9.4-12.5)
[2018-01-29 12:57] LABS: ALB/GLOB RATIO 1.4 (1.1-1.8); ALBUMIN 4.8 g/dL (3.0-4.8); ALT/SGPT 26 U/L (7-56); AST/SGOT 28 U/L (14-36); BLOOD UREA NITROGEN 13 mg/dL (7-21); CALCIUM 9.5 mg/dL (8.4-10.5); GFR NON-AFRICAN AMERICAN > 60
[2018-01-29 13:52] VITALS: BP 110/75; PULSE 84; RESP 17; O2SAT 100
== END 2018-01-29 13:52 | disposition home or self-care (01) ==
LOC: ED 11:11
DX: R51 Headache (principal)
CPT/HCPCS: 80053; 81003; 84703; 85025; 85610; 85730; 96361; 96374; 96375; 99285; J1200; J2765; J7030